=== PATIENT | female | born 1950 ===

== ENCOUNTER 2016-08-17 09:55 | Inpatient (IN) | payer BC, OTHER ==
[2016-08-17] MEDS ORDERED: Morphine 4 MG/ML Syringe IVPUSH ONE (10:04)
[2016-08-17] MEDS: Sodium Chloride 0.9% 10 ML Syringe FLUSH PRN ×3 (10:13→10:16)
[2016-08-17] MEDS: Ondansetron 4 MG/2 ML SDV IVPUSH PRN ×2 (10:14→10:47)
[2016-08-17] MEDS ORDERED: Morphine 4 MG/ML Syringe IM ONE (10:20)
[2016-08-17] MEDS ORDERED: Sodium Chloride 0.9% 1,000 ML IV ONE ×2 (10:21→12:07)
--- NOTE | 2016-08-17 10:35 | EDM.PDOC ---
ED HPI GI/ABDOMINAL - General Chief Complaint: Abdominal Pain Stated Complaint: STOMACH PAIN Time Seen by Provider: 08/17/16 10:05 Source: Reports: Patient, Family History Limitations: Reports: No limitations - History of Present Illness INITIAL COMMENTS - FREE TEXT/NARRATIVE: c/o lower abd pain x 36h pain in suprapubic area without radiation, onset 2 evenings ago after going for a walk, an ache, did not bother too much, ate chicken and brussel sprouts and coucus for supper 2 nights ago after getting back from the walk. Food did not affect the pain, nor does BM or moving. Had pain when she awoke yesterday, took ibuprofen x 2 which helped, ate 3 meals yesterday, appetite okay, no f/c/d, no n /v. Slept through the night. Awoke 9 AM today and still had pain, more severe, no radiation, now with some nausea but no emesis, took water with her AM thyroid med, otherwise has not eaten or drunken. pain severe on arrival here, MS 4 mg IV did not help, given a 2nd dose of 4 mg h/o c/s x 2, no other abd surgery, not previously had abd pain colonoscopy x 2 were neg, last one 1-2y ago here by Dr Hardy, no tics - Related Data Allergies/ADRs: Allergies Allergy/AdvReac Type Severity Reaction Status Date / Time No Known Allergies Allergy Verified 08/17/16 10:19 Home Meds: Home Meds Aspirin 81 mg PO DAILY 04/07/15 [History] Betamethasone/Propylene Glyc [Diprolene 0.05%] 1 dose TOP ASDIRECTED 04/07/15 [ History] Biotin 5 mg PO DAILY 04/07/15 [History] Calcium Carbonate/Vitamin D3 [Calcium 600 + Vit D 400 Softgl] 1 tab PO DAILY 10/15 [History] Cholecalciferol (Vitamin D3) [Vitamin D] 400 units PO DAILY 04/07/15 [History] Docusate Sodium 100 mg PO DAILY 04/07/15 [History] Hydrochlorothiazide 25 mg PO DAILY 04/07/15 [History] Levothyroxine Sodium [Levoxyl] 50 mcg PO DAILY 04/07/15 [History] [place] Carbonate [Eskalith CR] 900 mg PO DAILY 04/07/15 [History] Mirtazapine 15 mg PO BEDTIME 04/07/15 [History] Omeprazole 20 mg PO BIDAC 08/17/16 [History] Past Medical History - Past Health History Medical/Surgical History: Denies Medical/Surgical History Other OB/BYN History: Social & Family History - Tobacco Use Smoking Status *Q: Former Smoker - Alcohol Use Days Per Week of Alcohol Use: 7 Number of Drinks Per Day: 1 Total Drinks Per Week: 7 - Recreational Drug Use Recreational Drug Use: No ED ROS GENERAL - Review of Systems Review Of Systems: See Below Constitutional: Reports: no symptoms HEENT: Reports: No symptoms Respiratory: Reports: No Symptoms Cardiovascular: Reports: No symptoms Endocrine: Reports: no symptoms GI/Abdominal: Reports: Abdominal pain, Distension : Reports: no symptoms Musculoskeletal: Reports: no symptoms Skin: Reports: no symptoms Neurological: Reports: No Symptoms Hematologic/Lymphatic: Reports: no symptoms Immunologic: Reports: no symptoms ED EXAM, GI/ABD - Physical Exam Exam: See Below Exam Limited By: No limitations General Appearance: alert, WD/WN, moderate distress Ears: normal external exam, hearing grossly normal Nose: normal inspection, normal mucosa, no blood Throat/Mouth: Normal inspection, Normal lips, Normal teeth, Normal gums, Normal oropharynx, Normal voice, No airway compromise Head: atraumatic, normocephalic Neck: normal inspection, supple, non-tender, full range of motion Respiratory/Chest: no respiratory distress, lungs clear, normal breath sounds, no accessory muscle use, chest non-tender Cardiovascular: regular rate, rhythm, no edema, no gallop, no rub, other (2/6 BRITTNY at LSB, not tachy) GI/Abdominal: other (mild to moderate distention, guarding, 1+ tender throughout without localizing, BS x 4 and diminished, no rushes, no CVAT) Back Exam: normal inspection, full range of motion, NT Extremities: normal inspection, normal range of motion, non-tender, no pedal edema Neurological: alert, oriented, CN II-XII intact, normal cognition, no motor/ sensory deficits Psychiatric: normal affect, normal mood Skin Exam: Warm, Dry, Intact, Normal color, No rash Lymphatic: no adenopathy Course - Vital Signs Last Recorded V/S: Last Vital Signs Temp 36.9 C 08/17/16 12:32 Pulse 62 08/17/16 12:32 Resp 15 08/17/16 12:32 BP 115/57 L 08/17/16 12:32 Pulse Ox 98 08/17/16 12:32 - Orders/Labs/Meds Orders: Active Orders 24 hr Category Date Time Status Patient Status [ADT] Routine ADT 08/17/16 12:47 Active Oxygen Therapy [RC] PRN Care 08/17/16 12:47 Active VTE/DVT Education [RC] Per Unit Routine Care 08/17/16 12:47 Active Vital Signs [RC] Q4H Care 08/17/16 12:47 Active Nothing per Oral Now Diet [DIET] Diet 08/17/16 Breakfast Ordered LIPASE [REF] Stat Lab 08/17/16 10:30 Received Iopamidol [Isovue-370 (76%)] Med 08/17/16 11:15 Active 100 ml IV . DIRECTED Lactated Ringers [Ringers, Lactated] 1,000 ml Med 08/17/16 13:00 Ordered IV ASDIRECTED Morphine Med 08/17/16 12:47 Ordered 2 mg IVPUSH Q1H PRN Ondansetron [Zofran] Med 08/17/16 12:47 Ordered 4 mg IV Q6H PRN Ondansetron [Zofran] Med 08/17/16 10:04 Active 4 mg IVPUSH Q4H PRN Piperacillin/Tazobactam [Zosyn] 3.375 gm Med 08/17/16 13:00 Ordered Sodium Chloride 0.9% [Normal Saline] 50 ml IV Q6H Sodium Chloride 0.9% [Normal Saline] 1,000 ml Med 08/17/16 12:07 Active IV .BOLUS Sodium Chloride 0.9% [Saline Flush] Med 08/17/16 10:05 Active 10 ml FLUSH ASDIRECTED PRN Saline Lock Insert [OM.PC] Routine Oth 08/17/16 10:05 Ordered Sequential Compression Device [OM.PC] Per Unit Routine Oth 08/17/16 12:48 Ordered Resuscitation Status Routine Resus Stat 08/17/16 12:47 Ordered Medication Orders Sodium Chloride (Normal Saline) 1,000 mls @ 999 mls/hr IV .BOLUS ONE Stop: 08/17/16 13:07 Last Admin: 08/17/16 12:12 Dose: 999 mls/hr Lactated Ringer's (Ringers, Lactated) 1,000 mls @ 250 mls/hr IV ASDIRECTED MIAN Piperacillin Sod/Tazobactam (Sod 3.375 gm/ Sodium Chloride) 50 mls @ 100 mls/ hr IV Q6H MIAN Iopamidol (Isovue-370 (76%)) 100 ml IV . DIRECTED MIAN Last Admin: 08/17/16 11:17 Dose: 100 ml Morphine Sulfate (Morphine) 2 mg IVPUSH Q1H PRN PRN Reason: Pain (severe 7-10) Ondansetron HCl (Zofran) 4 mg IVPUSH Q4H PRN PRN Reason: Nausea/Vomiting Last Admin: 08/17/16 10:47 Dose: 4 mg Admin: 08/17/16 10:14 Dose: 4 mg Ondansetron HCl (Zofran) 4 mg IV Q6H PRN PRN Reason: Nausea/Vomiting Sodium Chloride (Saline Flush) 10 ml FLUSH ASDIRECTED PRN PRN Reason: Keep Vein Open Last Admin: 08/17/16 10:16 Dose: 10 ml Admin: 08/17/16 10:14 Dose: 10 ml Admin: 08/17/16 10:13 Dose: 10 ml Labs: Laboratory Tests 08/17/16 08/17/16 08/17/16 Range/Units 10:30 10:30 10:30 WBC 13.5 H (4.5-12.0) X10-3/uL RBC 4.30 (3.23-5.20) x10(6)uL Hgb 13.3 (11.5-15.5) g/dL Hct 39.7 (30.0-51.3) % MCV 92.5 (80-96) fL MCH 30.9 (27.7-33.6) pg MCHC 33.4 (32.2-35.4) g/dL RDW 11.8 (11.5-15.5) % Plt Count 340 (125-369) X10(3)uL MPV 7.8 (7.4-10.4) fL Neut % (Auto) 81.5 (46-82) % Lymph % (Auto) 11.8 L (13-37) % [place] % (Auto) 3.9 L (4-12) % Eos % (Auto) 2 (1.0-5.0) % Baso % (Auto) 1 (0-2) % Neut # (Auto) 11.1 H (1.6-8.3) # Lymph # (Auto) 1.6 (0.6-5.0) # [place] # (Auto) 0.5 (0.0-1.3) # Eos # (Auto) 0.2 (0.0-0.8) # Baso # (Auto) 0.1 (0.0-0.2) # Sodium 140 (135-145) mmol/L Potassium 4.3 (3.5-5.3) mmol/L Chloride 108 (100-110) mmol/L Carbon Dioxide 22 L (23-29) mmol/L BUN 17 (8-23) mg/dL Creatinine 0.8 (0.6-1.3) mg/dL Est Cr Clr Drug Dosing 66.51 mL/min Estimated GFR (MDRD) > 60 (>60) BUN/Creatinine Ratio 21.3 H (9-20) Glucose 152 H (80-116) mg/dL Lactic Acid (0.5-2.2) mmol/L Calcium 9.6 (8.6-10.2) mg/dL Total Bilirubin 0.7 (0.1-1.3) mg/dL AST 21 D (5-27) IU/L ALT 15 D (14-26) IU/L Alkaline Phosphatase 99 (56-112) IU/L Lactate Dehydrogenase 145 (120-160) IU/L Troponin I < 0.01 L (0.02-0.06) NG/ML C-Reactive Protein 7.6 H* (0.0-1.0) mg/dL Total Protein 7.3 (6.0-8.0) g/dL Albumin 4.1 (3.2-4.6) g/dL Globulin 3.2 g/dL Albumin/Globulin Ratio 1.3 Amylase 53 (28-100) U/L Urine Color (YELLOW) Urine Appearance (CLEAR) Urine pH (5.0-6.5) Ur Specific [place] (1.010-1.025) Urine Protein (NEGATIVE) mg/dL Urine Glucose (UA) (NEGATIVE) mg/dL Urine Ketones (NEGATIVE) mg/dL Urine Occult Blood (NEGATIVE) Urine Nitrite (NEGATIVE) Urine Bilirubin (NEGATIVE) Urine Urobilinogen (NEGATIVE) mg/dL Ur Leukocyte Esterase (NEGATIVE) Urine WBC (0) Ur Squamous Epith Cells (NS,R,O) Urine Bacteria (NS) 08/17/16 08/17/16 Range/Units 10:30 12:07 WBC (4.5-12.0) X10-3/uL RBC (3.23-5.20) x10(6)uL Hgb (11.5-15.5) g/dL Hct (30.0-51.3) % MCV (80-96) fL MCH (27.7-33.6) pg MCHC (32.2-35.4) g/dL RDW (11.5-15.5) % Plt Count (125-369) X10(3)uL MPV (7.4-10.4) fL Neut % (Auto) (46-82) % Lymph % (Auto) (13-37) % [place] % (Auto) (4-12) % Eos % (Auto) (1.0-5.0) % Baso % (Auto) (0-2) % Neut # (Auto) (1.6-8.3) # Lymph # (Auto) (0.6-5.0) # [place] # (Auto) (0.0-1.3) # Eos # (Auto) (0.0-0.8) # Baso # (Auto) (0.0-0.2) # Sodium (135-145) mmol/L Potassium (3.5-5.3) mmol/L Chloride (100-110) mmol/L Carbon Dioxide (23-29) mmol/L BUN (8-23) mg/dL Creatinine (0.6-1.3) mg/dL Est Cr Clr Drug Dosing mL/min Estimated GFR (MDRD) (>60) BUN/Creatinine Ratio (9-20) Glucose (80-116) mg/dL Lactic Acid 1.8 (0.5-2.2) mmol/L Calcium (8.6-10.2) mg/dL Total Bilirubin (0.1-1.3) mg/dL AST (5-27) IU/L ALT (14-26) IU/L Alkaline Phosphatase (56-112) IU/L Lactate Dehydrogenase (120-160) IU/L Troponin I (0.02-0.06) NG/ML C-Reactive Protein (0.0-1.0) mg/dL Total Protein (6.0-8.0) g/dL Albumin (3.2-4.6) g/dL Globulin g/dL Albumin/Globulin Ratio Amylase (28-100) U/L Urine Color Yellow (YELLOW) Urine Appearance Slightly cloudy (CLEAR) Urine pH 6.0 (5.0-6.5) Ur Specific [place] 1.005 L (1.010-1.025) Urine Protein 30 H (NEGATIVE) mg/dL Urine Glucose (UA) Normal (NEGATIVE) mg/dL Urine Ketones Negative (NEGATIVE) mg/dL Urine Occult Blood Negative (NEGATIVE) Urine Nitrite Negative (NEGATIVE) Urine Bilirubin Negative (NEGATIVE) Urine Urobilinogen Normal (NEGATIVE) mg/dL Ur Leukocyte Esterase Negative (NEGATIVE) Urine WBC 0-5 (0) Ur Squamous Epith Cells Few H (NS,R,O) Urine Bacteria Few H (NS) Meds: Medications Generic Name Dose Route Start Last Admin Trade Name Freq PRN Reason Stop Dose Admin Sodium Chloride 1,000 mls @ 999 mls/hr 08/17/16 12:07 08/17/16 12:12 Normal Saline IV 08/17/16 13:07 999 mls/hr .BOLUS ONE Administration Lactated Ringer's 1,000 mls @ 250 mls/hr 08/17/16 13:00 Ringers, Lactated IV ASDIRECTED [facility] Piperacillin Sod/Tazobactam 50 mls @ 100 mls/hr 08/17/16 13:00 Sod 3.375 gm/ Sodium Chloride IV Q6H [facility] Iopamidol 100 ml 08/17/16 11:15 08/17/16 11:17 Isovue-370 (76%) IV 100 ml . DIRECTED MIAN Administration Morphine Sulfate 2 mg 08/17/16 12:47 Morphine IVPUSH Q1H PRN Pain (severe 7-10) Ondansetron HCl 4 mg 08/17/16 10:04 08/17/16 10:47 Zofran IVPUSH 4 mg Q4H PRN Administration Nausea/Vomiting Ondansetron HCl 4 mg 08/17/16 12:47 Zofran IV Q6H PRN Nausea/Vomiting Sodium Chloride 10 ml 08/17/16 10:05 08/17/16 10:16 Saline Flush FLUSH 10 ml ASDIRECTED PRN Administration Keep Vein Open Discontinued Medications Generic Name Dose Route Start Last Admin Trade Name Adrienne PRN Reason Stop Dose Admin Sodium Chloride 1,000 mls @ 999 mls/hr 08/17/16 10:21 08/17/16 10:36 Normal Saline IV 08/17/16 11:21 999 mls/hr .BOLUS ONE Administration Metoclopramide HCl 10 mg 08/17/16 11:16 08/17/16 12:28 Reglan IV 08/17/16 11:17 Not Given ONETIME ONE Morphine Sulfate 4 mg 08/17/16 10:04 08/17/16 10:14 Morphine IVPUSH 08/17/16 10:05 4 mg ONETIME ONE Administration Morphine Sulfate 4 mg 08/17/16 10:20 08/17/16 10:28 Morphine IM 08/17/16 10:21 4 mg ONETIME ONE Administration Morphine Sulfate 1 mg 08/17/16 12:45 Morphine IVPUSH Q2H MIAN Morphine Sulfate 2 mg 08/17/16 12:39 08/17/16 12:47 Morphine IVPUSH 08/17/16 12:40 2 mg ONETIME ONE Administration - Re-Assessments/Exams Free Text/Narrative Re-Assessment/Exam: 08/17/16 12:03 abd/pelvic CT with 18 mm appendix, possible appendolith, no abscess, ascites, peritonitis. inc'd WBC and CRP also c/w appendicitis. d/w pt as well as surgeon Dr Garza who will come from clinic to evaluate here. Dr Orozco did not think appendix had ruptured altho she may have clinically, abd now softer with inc'd tenderness localizing to RLQ (no longer guarding) Free Text/Narrative Re-Assessment/Exam: 08/17/16 13:00 Dr Garza has seen and evaluated pt, plans to take her to OR, pt agrees to proceed. Departure - Departure Time of Disposition: 12:05 Disposition: Admitted As Inpatient 67 Condition: good Clinical Impression: Acute appendicitis with peritonitis Referrals: Kirk Coleman MD [Primary Care Provider] - Forms: ED Department Discharge - My Orders Last 24 Hours: My Active Orders 08/17/16 10:04 Ondansetron [Zofran] 4 mg IVPUSH Q4H PRN 08/17/16 10:05 Sodium Chloride 0.9% [Saline Flush] 10 ml FLUSH ASDIRECTED PRN Saline Lock Insert [OM.PC] Routine 08/17/16 10:30 LIPASE [REF] Stat 08/17/16 11:15 Iopamidol [Isovue-370 (76%)] 100 ml IV . DIRECTED 08/17/16 12:07 Sodium Chloride 0.9% [Normal Saline] 1,000 ml IV .BOLUS - Assessment/Plan Last 24 Hours: My Active Orders 08/17/16 10:04 Ondansetron [Zofran] 4 mg IVPUSH Q4H PRN 08/17/16 10:05 Sodium Chloride 0.9% [Saline Flush] 10 ml FLUSH ASDIRECTED PRN Saline Lock Insert [OM.PC] Routine 08/17/16 10:30 LIPASE [REF] Stat 08/17/16 11:15 Iopamidol [Isovue-370 (76%)] 100 ml IV . DIRECTED 08/17/16 12:07 Sodium Chloride 0.9% [Normal Saline] 1,000 ml IV .BOLUS
[2016-08-17] MEDS ORDERED: Iopamidol 755 Mg/ML 100 ML Bottle IV SCH (11:15)
[2016-08-17] MEDS ORDERED: Metoclopramide 10 MG/2 ML SDV IV ONE ×2 (11:16→14:00)
--- NOTE | 2016-08-17 12:34 | CT ---
INDICATION: Lower abdominal pain for 36 hours, suprapubic, increased. CT ABDOMEN AND PELVIS WITH CONTRAST: Spiral 2.5-mm axial sections were obtained through the abdomen with oral and IV contrast (100 mL Isovue-370 at 1.2 mL per second) with sagittal and coronal reconstructions 08/17/2016. No comparisons were available. Total Exam DLP = 1002.07 mGy-cm. What appears to be a dilated appendix with thickened wall is noted in the right lower quadrant, measuring approximately 18 mm. The possibility this represents distal ileum with a process such as Crohn's disease is felt to be less likely than acute appendicitis with a markedly enlarged appendix. Extensive periappendiceal and pericecal fat stranding is noted, compatible with peritonitis, which extends into the paracolic gutter superiorly, almost to the level of the kidneys, and inferiorly into the pelvis with pelvic ascites. No definite abscess formation was identified, however. Urinary bladder was fairly normal in appearance. Multiple metallic densities are noted scattered about the abdomen within the bowel, compatible with medication, but should be correlated clinically. Contrast was only noted in the stomach. The gastric antral wall is slightly prominent, which could be on the basis of mild degree of peptic ulcer disease, but should be correlated clinically. The gallbladder is distended in appearance, (44 x 95 mm) likely on the basis of NPO status. There is a probable benign cystic structure in the left lobe of the liver, measuring 33 x 48 mm in diameter. Its wall is slightly shaggy, making it difficult to entirely exclude an abscess. Follow-up may be warranted. An additional purely cystic lesion is suggested in the lower portion of the right lobe of the liver, measuring only 14 mm. The liver was otherwise unremarkable. The left kidney showed evidence of cystic changes, one tiny cyst in the upper pole measured 8.2 mm with an adjacent much larger cyst, mostly exophytic, measuring 31 x 40 mm, both appearing to be simple cysts. The right kidney was unremarkable. The adrenal glands were unremarkable also. The pancreas appeared to be minimally fatty replaced with common bile duct normal in caliber at the head of the pancreas. The spleen appeared normal. There is suggestion of a small fixed hiatal hernia. No definite retroperitoneal mass lesion could be identified. There is retroperitoneal lymphadenopathy, which is nonspecific. It is relatively mild. No other organomegaly, mass lesions, or free fluid collections were identified in the abdomen or pelvis. IMPRESSION: 1. Findings are felt to be most compatible with appendicitis with peritonitis and pelvic ascites. The peritonitis appears to extend into the paracolic gutter towards the level of the lower pole of the right kidney and extends also into the pelvis with pelvic ascites and fat stranding. 2. Probable multiple cysts in the liver, although the larger cyst in the left lateral aspect of the left lobe of the liver could conceivably represent an abscess. This is felt to be less likely than a simple cyst. Follow-up may be warranted, however. 3. Distended gallbladder, likely on the basis of NPO status. 4. Cystic changes in the left kidney have a benign appearance. CT PELVIS: Examination of the pelvis was obtained by CT, as noted above, and revealed findings compatible with appendicitis and peritonitis, with peritonitis extending across the midline to the left and also extending superiorly into the lower left abdomen. Report was called to Dr. Boles at 1155 hours, 08/17/2016. Report was given in person to Dr. Onofre Ignacio at 1235 hours, 08/17/2016. [facility] HOSPITALMason
[2016-08-17] MEDS ORDERED: Morphine 2 MG/ML Syringe IVPUSH ONE (12:39)
[2016-08-17] MEDS ORDERED: Morphine 2 MG/ML Syringe IVPUSH SCH (12:45)
[2016-08-17] MEDS ORDERED: Morphine 2 MG/ML Syringe IVPUSH PRN (12:47)
[2016-08-17] MEDS ORDERED: Ondansetron 4 MG/2 ML SDV IV PRN (12:47)
[2016-08-17] MEDS ORDERED: Piperacillin/Tazobactam 3.375 GM in Sodium Chloride 0.9% 50 ML IV SCH (13:00)
[2016-08-17] MEDS ORDERED: Lactated Ringers 1,000 ML IV SCH (13:00)
[2016-08-17] MEDS ORDERED: fentaNYL 100 MCG/2 ML SDV IVPUSH PRN (13:35)
[2016-08-17] MEDS ORDERED: HYDROmorphone 2 MG/ML SDV IVPUSH PRN (13:35)
[2016-08-17] MEDS ORDERED: Ondansetron 4 MG/2 ML SDV IVPUSH PRN ×2 (13:35→16:10)
[2016-08-17] MEDS ORDERED: fentaNYL 100 MCG/2 ML SDV IV ONE (14:00)
[2016-08-17] MEDS ORDERED: Succinylcholine/Normal Saline 200 MG/10 ML Syringe IV ONE (14:00)
[2016-08-17] MEDS ORDERED: ePHEDrine 50 MG/ML SDV IV ONE (14:00)
[2016-08-17] MEDS ORDERED: Lactated Ringers 1,000 ML IV ONE (14:00)
[2016-08-17] MEDS ORDERED: Famotidine/Normal Saline 20 MG/50 ML BAG IV ONE (14:00)
[2016-08-17] MEDS ORDERED: Propofol 200 MG/20 ML SDV IV ONE (14:00)
[2016-08-17] MEDS ORDERED: Midazolam 1 MG/ML 2 ML SDV IV ONE (14:00)
[2016-08-17] MEDS ORDERED: Ondansetron 4 MG/2 ML SDV IVPUSH ONE (14:00)
[2016-08-17] MEDS ORDERED: Citric Acid/Sodium Citrate Solution 30 ML Cup PO ONE (14:00)
[2016-08-17] MEDS ORDERED: Neostigmine Methylsulfate 1 MG/ML 5 ML Syringe IV ONE (14:00)
[2016-08-17] MEDS ORDERED: Rocuronium 50 MG/5 ML Vial IV ONE (14:00)
[2016-08-17] MEDS ORDERED: Dexamethasone 4 MG/ML 5 ML MDV IVPUSH ONE (14:00)
[2016-08-17] MEDS ORDERED: HYDROmorphone 2 MG/ML SDV IV ONE (14:00)
[2016-08-17] MEDS ORDERED: Bupivacaine 0.5%/EPINEPHrine 1:200,000 50 ML MDV INJECT ONE (14:27)
--- NOTE | 2016-08-17 15:34 | HP ---
ADMISSION DATE: 08/17/2016 HISTORY OF PRESENT ILLNESS: This 65-year-old female presented to the emergency room this morning with continued and worsening abdominal pain. She says her pain began in the lower abdomen about 3 days ago. It has continued and was noted to be significantly worse this morning. It has mainly been in the lower abdomen, and more diffuse today than previously. It began in the right lower quadrant. It has been associated with some nausea but no diarrhea. Her last bowel movement which was a normal stool was 2 days ago. The patient has not had pain similar to this before. She does not recall eating any unusual foods. She did eat yesterday, but has not eaten anything today. On evaluation, the patient underwent a CT scan of the abdomen which was interpreted as showing a dilated acutely inflamed appendix with some periappendiceal inflammation as well as intraperitoneal fluid consistent with inflammatory response. No free air is noted. LABORATORY DATA: Laboratory studies show elevated serum white blood cell count of 13,500. Unremarkable liver functions and a normal amylase. PAST MEDICAL HISTORY: Shows only previous surgeries, which was 2 sections. She states she had no anesthetic complications from them. She does have a history of manic depressive condition. The patient has had 2 colonoscopies in the past, the last was 2 years ago and these were normal. CURRENT MEDICATIONS: Include: 1. [place] 900 mg daily. 2. Mirtazapine 15 mg at bedtime. 3. Prilosec b.i.d. 4. She also takes a daily aspirin. 5. Hydrochlorothiazide 25 mg daily. ALLERGIES: She has no known drug allergies, although she does recall a mild reaction to Naprosyn in the past. HABITS: She does not smoke, but does drink alcohol. FAMILY HISTORY: Negative for known anesthetic complications or bleeding disorders. SOCIAL HISTORY: The patient is and lives in [place]. She is not currently working outside the home. REVIEW OF SYSTEMS: She denies any recent cough, cold, or sore throat symptoms. She denies any chest pain or palpitations. There has been no history of shortness of breath or breathing disorders. She has no voiding difficulties and denies any lower extremity joint pain and only has occasional mild ankle swelling. PHYSICAL EXAMINATION: VITAL SIGNS: Temperature 98.5, pulse 62, blood pressure is 115/57. GENERAL: The patient is an adult female. She is in significant abdominal pain. HEENT: Head is normocephalic. There is no scleral icterus. No cervical masses. HEART: Regular without murmur. LUNGS: Clear. Breath sounds are equal. There is no wheezing. She has no CVA tenderness to percussion. ABDOMEN: Shows diffuse tenderness to direct palpation with percussion tenderness noted in the lower abdomen, both left and right lower quadrants. No definite mass is identified. IMPRESSION: Acute appendicitis with peritonitis. PLAN: The patient will be admitted and will be taken to the operating room for diagnostic laparoscopy and probable laparoscopic appendectomy. I have discussed the proposed operative procedure with the patient and reviewed with her indications, options, and risks, such as but not limited to bleeding, infection, and injury to other organs. I have also discussed possible other diagnoses and clearly reviewed with her the possibility of the need to convert to a laparotomy. She appears to understand and agrees to proceed. /[id number] ALETA/ANEESH RUFFIN
--- NOTE | 2016-08-17 16:10 | PCM.OPNOTE ---
- General Post-Op/Procedure Note Date of Surgery/Procedure: 08/17/16 Operative Procedure(s): Laproscopic Appendectomy Findings: Acutely inflamed appendix with perforation near cecum. Diffuse peritonitis and inflammatory fluid in abdomen but no localized abscess. Pre Op Diagnosis: Acute Appendicitis Post-Op Diagnosis: Acute Perforated Appendicitis with Peritonitis Anesthesia Technique: General ET tube Primary Surgeon: Onofre Ignacio Pathology: Appendix and cultures Output, Urine Amount: 0 EBL in mLs: 25 Complications: None Condition: Good Free Text/Narrative:: Intake & Output 08/17/16 08/17/16 08/17/16 06:59 14:59 22:59 Output Total 525 Balance -525
[2016-08-17] MEDS ORDERED: BETAMETHASONE TOP SCH (16:15)
[2016-08-17] MEDS ORDERED: PROPYLENE GLYC TOP SCH (16:15)
[2016-08-17] MEDS: Pantoprazole 40 MG Vial IVPUSH SCH (17:50)
[2016-08-17] MEDS: Lactated Ringers 1,000 ML IV SCH (18:36)
[2016-08-17] MEDS: Piperacillin/Tazobactam 3.375 GM in Sodium Chloride 0.9% 50 ML IV SCH (20:22)
[2016-08-17] MEDS: Morphine 2 MG/ML Syringe IVPUSH PRN (23:12)
--- NOTE | 2016-08-17 23:32 | OR ---
DATE OF OPERATION: 08/17/2016 SURGEON: Onofre Ignacio MD PREOPERATIVE DIAGNOSIS: Acute appendicitis. POSTOPERATIVE DIAGNOSIS: Acute perforated appendicitis with peritonitis. OPERATION PERFORMED: Laparoscopic appendectomy. INDICATIONS FOR SURGERY: This 65-year-old female presented to the emergency room with a 3-day history of abdominal pain which was significantly worsening today. She had marked abdominal tenderness and a CT scan finding consistent with acute appendicitis. FINDINGS: The patient had a severe acute appendicitis with perforation of the appendix near the appendiceal cecal junction. There was stool leaking from this perforation and intense inflammation in the near by bowel wall and tissue. There was a moderate amount of cloudy inflammatory fluid throughout the lower abdomen and exudate on surface of several loops of small bowel. Some of the bowel was adherent to the anterior abdominal wall and to each other, but no intra-loop or intraabdominal abscess was identified. The patient had a findings consistent with a cyst on the left lobe of her liver noted on CT scan, but adhesions in the upper abdomen precluded visualization of this. PROCEDURE IN DETAIL: The patient was taken to the operating room. She was given general endotracheal anesthesia, and the abdomen was sterilely prepped and draped. An infraumbilical stab wound incision was made. Through this a Veress needle was inserted and pneumoperitoneum via this needle to a pressure of 15 mmHg was achieved with carbon dioxide. The Veress needle was then replaced with a 5 mm trocar into which the 5 mm variable angled laparoscopic camera was inserted. Under direct visualization, intraabdominal examination was performed. There were adhesions of the loops of small bowel to the anterior abdominal wall in the lower abdomen which initially precluded placement of the trocars in the midline and right lower quadrant. There was enough open space in the left lower quadrant, a 5 mm trocar could be placed at this level under direct visualization. Using blunt dissection, the small bowel was able to be freed from the anterior abdominal wall exposing the lower part of the abdomen and exposure was achieved, so that a 12 mm trocar to be placed in the suprapubic midline. Careful examination was then carried out and the appendix was identified at the inferior edge of the cecum. Examination of the appendix showed it to be severely acutely inflamed with a perforation near the appendiceal cecal junction, some stool was coming through this perforation, and this was removed and contained as much as possible. Blunt dissection partially mobilized the appendix and careful examination indicated that there would be just enough space on the lower part of the cecum where the appendiceal cecal junction could be stapled across high on the cecum, where there was satisfactory quality of the cecal wall. Careful manipulation was then performed to open a window in the mesentery at the lower edge of the cecum and then across the lower portion of the cecum, an Endo SMOOTH stapler with 2.5 mm sabina was placed in such a manner that the site of perforation was just on the appendiceal side of the staple line. The stapler is fired dividing the appendix from the cecum and careful examination of the cecal staple line and the surrounding cecal wall showed the tissue to be of good quality, the staple line to be secure, and no evidence of weakening of this area was noted. Two additional firings of the Endo SMOOTH were then carried out across the mesoappendix and the appendix was then placed into an Endo retrieval bag and extracted piecemeal through the umbilical trocar site. A 12 mm trocar had to be placed at this level to provide a good angle for the stapler to fire across the lower part of the cecum. Cultures of the appendix were taken. With the appendix removed, copious irrigation with multiple liters of saline was then carried out throughout the abdominal cavity. Irrigation was performed and examination between the loops of the small bowel was carried out to try and be sure that as much as possible any contamination was irrigated and no intra-loop abscess was left. Examination did not show any other abnormalities. There were adhesions of the superior portion of the left lobe to the anterior abdominal wall which precluded visualization of the region of a benign appearing cyst which had been noted on CT scan. Once the abdominal cavity had been copiously irrigated and with no sign of any bleeding or other complication and with inspection showing the cecal staple line to be of good quality, the trocars were removed under direct visualization and the pneumoperitoneum was evacuated. The fascia of the two larger trocar sites were closed with [id number] 0 Vicryl sutures. The wounds were irrigated with Betadine and saline solution. Skin incisions were approximated with interrupted 4-0 Vicryl in a subcuticular stitch, Steri-Strips and Benzoin. Antibiotic ointment and sterile dressings were placed. The patient was then awakened, extubated, and taken from the operating room in satisfactory condition. ESTIMATED BLOOD LOSS: 25 Margaret. COMPLICATIONS: None. PROGNOSIS: Good. /[id number] ALETA/ANEESH RUFFIN
[2016-08-18] MEDS: Morphine 2 MG/ML Syringe IVPUSH PRN ×3 (01:30→05:34)
[2016-08-18] MEDS: Piperacillin/Tazobactam 3.375 GM in Sodium Chloride 0.9% 50 ML IV SCH ×4 (01:35→19:47)
[2016-08-18] MEDS: Lactated Ringers 1,000 ML IV SCH ×3 (03:39→21:55)
[2016-08-18] MEDS ORDERED: Levothyroxine 50 MCG Tab PO SCH (06:00)
--- NOTE | 2016-08-18 07:45 | PCM.SURGPN ---
- General Info Date of Service: 08/18/16 Date of Surgery/Procedure: 08/17/16 POD#: 1 Post-Op Diagnosis: Acute Ruptured Appendicitis Functional Status: Reports: other (pain better then pre op but still pain with movement) - Review of Systems Pulmonary: Reports: cough (Mild with some abdominal muscle spasms). Denies: shortness of breath Gastrointestinal: Denies: Flatus, Nausea, Vomiting Musculoskeletal: Reports: no symptoms - Patient Data Vitals - most recent: Last Vital Signs Temp 97.5 F 08/18/16 07:15 Pulse 107 H 08/18/16 07:15 Resp 18 08/18/16 07:15 BP 114/74 08/18/16 07:15 Pulse Ox 90 L 08/18/16 07:15 Weight - most recent: 190 lb I&O - last 24 hours: Intake & Output 08/17/16 08/18/16 08/18/16 22:59 06:59 14:59 Intake Total 450 1125 Output Total 250 700 Balance 200 425 Lab Results last 24 hrs: Laboratory Results - last 24 hr 08/18/16 08/18/16 Range/Units 06:40 06:40 WBC 15.5 H (4.5-12.0) X10-3/uL RBC 3.99 (3.23-5.20) x10(6)uL Hgb 12.5 (11.5-15.5) g/dL Hct 37.1 (30.0-51.3) % MCV 93.1 (80-96) fL MCH 31.4 (27.7-33.6) pg MCHC 33.7 (32.2-35.4) g/dL RDW 12.1 (11.5-15.5) % Plt Count 286 (125-369) X10(3)uL MPV 8.1 (7.4-10.4) fL Add Manual Diff Yes Neutrophils % (Manual) 59 (46-82) % Band Neutrophils % 20 H* (0-6) % Lymphocytes % (Manual) 11 L (13-37) % Monocytes % (Manual) 9 (4-12) % Metamyelocytes % 1 H (0-0) % Potassium 3.8 (3.5-5.3) mmol/L Med Orders - Current: Current Medications Hydrocodone Bitart/Acetaminophen ([place] 325-5 Mg) 2 tab PO Q4H PRN PRN Reason: Pain (moderate 4-6) Hydrocodone Bitart/Acetaminophen ([place] 325-5 Mg) 1 tab PO Q4H PRN PRN Reason: Pain (mild 1-3) Fentanyl (Sublimaze) 25 mcg IVPUSH Q5M PRN PRN Reason: Pain Hydrochlorothiazide (Hydrochlorothiazide) 25 mg PO DAILY [facility] Hydromorphone HCl (Dilaudid) 0.2 mg IVPUSH Q10M PRN PRN Reason: Pain (severe 7-10) Lactated Ringer's (Ringers, Lactated) 1,000 mls @ 250 mls/hr IV ASDIRECTED [facility] Lactated Ringer's (Ringers, Lactated) 1,000 mls @ 125 mls/hr IV ASDIRECTED [facility] Last Admin: 08/18/16 03:39 Dose: 125 mls/hr Piperacillin Sod/Tazobactam (Sod 3.375 gm/ Sodium Chloride) 50 mls @ 100 mls/ hr IV Q6H [facility] Last Admin: 08/18/16 01:35 Dose: 100 mls/hr Iopamidol (Isovue-370 (76%)) 100 ml IV . DIRECTED [facility] Last Admin: 08/17/16 11:17 Dose: 100 ml Levothyroxine Sodium (Synthroid) 50 mcg PO 0600 [facility] Last Admin: 08/18/16 05:34 Dose: 50 mcg Morphine Sulfate (Morphine) 2 mg IVPUSH Q1H PRN PRN Reason: Pain (severe 7-10) Last Admin: 08/18/16 07:28 Dose: 2 mg Morphine Sulfate (Morphine) 2 mg IVPUSH Q1H PRN PRN Reason: Pain (severe 7-10) Last Admin: 08/18/16 05:34 Dose: 2 mg Non-Formulary Medication (Betamethasone/Propylene Glyc [Diprolene 0.05%]) 1 dose TOP ASDIRECTED [facility] Non-Formulary Medication ([place] Carbonate [Eskalith Cr]) 900 mg PO DAILY [facility] Ondansetron HCl (Zofran) 4 mg IVPUSH Q4H PRN PRN Reason: Nausea/Vomiting Last Admin: 08/17/16 10:47 Dose: 4 mg Ondansetron HCl (Zofran) 4 mg IV Q6H PRN PRN Reason: Nausea/Vomiting Ondansetron HCl (Zofran) 4 mg IVPUSH ONETIME PRN PRN Reason: Nausea/Vomiting Ondansetron HCl (Zofran) 4 mg IVPUSH Q6H PRN PRN Reason: Nausea/Vomiting Pantoprazole Sodium (Protonix Iv) 40 mg IVPUSH 1800 [facility] Last Admin: 08/17/16 17:50 Dose: 40 mg Sodium Chloride (Saline Flush) 10 ml FLUSH ASDIRECTED PRN PRN Reason: Keep Vein Open Last Admin: 08/17/16 10:16 Dose: 10 ml Discontinued Medications Bupivacaine HCl/Epinephrine Bitart (Marcaine 0.5%/Epinephrine 1:200,000) 20 ml INJECT .STK-MED ONE Stop: 08/17/16 14:28 Last Admin: 08/17/16 14:27 Dose: 20 ml Sodium Chloride (Normal Saline) 1,000 mls @ 999 mls/hr IV .BOLUS ONE Stop: 08/17/16 11:21 Last Admin: 08/17/16 10:36 Dose: 999 mls/hr Sodium Chloride (Normal Saline) 1,000 mls @ 999 mls/hr IV .BOLUS ONE Stop: 08/17/16 13:07 Last Admin: 08/17/16 12:12 Dose: 999 mls/hr Piperacillin Sod/Tazobactam (Sod 3.375 gm/ Sodium Chloride) 50 mls @ 100 mls/ hr IV Q6H [facility] Last Admin: 08/17/16 13:55 Dose: 100 mls/hr Metoclopramide HCl (Reglan) 10 mg IV ONETIME ONE Stop: 08/17/16 11:17 Last Admin: 08/17/16 12:28 Dose: Not Given Morphine Sulfate (Morphine) 4 mg IVPUSH ONETIME ONE Stop: 08/17/16 10:05 Last Admin: 08/17/16 10:14 Dose: 4 mg Morphine Sulfate (Morphine) 4 mg IM ONETIME ONE Stop: 08/17/16 10:21 Last Admin: 08/17/16 10:28 Dose: 4 mg Morphine Sulfate (Morphine) 1 mg IVPUSH Q2H [facility] Morphine Sulfate (Morphine) 2 mg IVPUSH ONETIME ONE Stop: 08/17/16 12:40 Last Admin: 08/17/16 12:47 Dose: 2 mg - Exam Wound/Incisions: drainage (mild clear drainage from lower incisions), erythema ( mild at umbilical incision) General: alert, oriented Lungs: Normal respiratory effort Abdomen: distension (mild) Extremities: no edema Psy/Mental Status: alert - Problem List Review Problem List Initiated/Reviewed/Updated: Yes - My Orders Last 24 Hours: Active Orders 24 hr Category Date Time Status Patient Status [ADT] Routine ADT 08/17/16 16:10 Active Ambulate [RC] ASDIRECTED Care 08/17/16 16:10 Active Antiembolic Devices [RC] .Routine Care 08/17/16 16:13 Active Intake and Output [RC] QSHIFT Care 08/17/16 16:11 Active Oxygen Therapy [RC] PRN Care 08/17/16 16:10 Active RT Incentive Spirometry [RC] Q1HWA Care 08/17/16 16:10 Active Nothing Per Oral Diet [DIET] Diet 08/17/16 Dinner Active CULTURE ANAEROBIC [RM] Routine Lab 08/17/16 15:30 Received CULTURE ROUTINE + SMEAR [RM] Routine Lab 08/17/16 15:30 Received Acetaminophen/HYDROcodone [[place] 325-5 MG] Med 08/17/16 16:10 Active 1 tab PO Q4H PRN Acetaminophen/HYDROcodone [[place] 325-5 MG] Med 08/17/16 16:10 Active 2 tab PO Q4H PRN Betamethasone/Propylene Glyc [Diprolene 0.05%] Med 08/17/16 16:15 Pending 1 dose TOP ASDIRECTED HYDROmorphone [Dilaudid] Med 08/17/16 13:35 Active 0.2 mg IVPUSH Q10M PRN Hydrochlorothiazide Med 08/18/16 09:00 Active 25 mg PO DAILY Lactated Ringers [Ringers, Lactated] 1,000 ml Med 08/17/16 16:15 Active IV ASDIRECTED Levothyroxine [Synthroid] Med 08/18/16 06:00 Active 50 mcg PO 0600 [place] Carbonate [Eskalith CR] Med 08/18/16 09:00 Pending 900 mg PO DAILY Morphine Med 08/17/16 16:10 Active 2 mg IVPUSH Q1H PRN Ondansetron [Zofran] Med 08/17/16 13:35 Active 4 mg IVPUSH ONETIME PRN Ondansetron [Zofran] Med 08/17/16 16:10 Active 4 mg IVPUSH Q6H PRN Pantoprazole [ProTONIX IV] Med 08/17/16 18:00 Active 40 mg IVPUSH 1800 Piperacillin/Tazobactam [Zosyn] 3.375 gm Med 08/17/16 20:00 Active Sodium Chloride 0.9% [Normal Saline] 50 ml IV Q6H fentaNYL [Sublimaze] Med 08/17/16 13:35 Active 25 mcg IVPUSH Q5M PRN DVT/VTE Prophylaxis Reflex [OM.PC] Per Unit Routine Oth 08/17/16 16:13 Ordered Medication Orders Hydrocodone Bitart/Acetaminophen ([place] 325-5 Mg) 2 tab PO Q4H PRN PRN Reason: Pain (moderate 4-6) Hydrocodone Bitart/Acetaminophen ([place] 325-5 Mg) 1 tab PO Q4H PRN PRN Reason: Pain (mild 1-3) Fentanyl (Sublimaze) 25 mcg IVPUSH Q5M PRN PRN Reason: Pain Hydrochlorothiazide (Hydrochlorothiazide) 25 mg PO DAILY [facility] Hydromorphone HCl (Dilaudid) 0.2 mg IVPUSH Q10M PRN PRN Reason: Pain (severe 7-10) Lactated Ringer's (Ringers, Lactated) 1,000 mls @ 250 mls/hr IV ASDIRECTED [facility] Lactated Ringer's (Ringers, Lactated) 1,000 mls @ 125 mls/hr IV ASDIRECTED [facility] Last Admin: 08/18/16 03:39 Dose: 125 mls/hr Infusion: 08/18/16 02:36 Dose: 125 mls/hr Admin: 08/17/16 18:36 Dose: 125 mls/hr Piperacillin Sod/Tazobactam (Sod 3.375 gm/ Sodium Chloride) 50 mls @ 100 mls/ hr IV Q6H [facility] Last Admin: 08/18/16 01:35 Dose: 100 mls/hr Admin: 08/17/16 20:22 Dose: 100 mls/hr Iopamidol (Isovue-370 (76%)) 100 ml IV . DIRECTED [facility] Last Admin: 08/17/16 11:17 Dose: 100 ml Levothyroxine Sodium (Synthroid) 50 mcg PO 0600 [facility] Last Admin: 08/18/16 05:34 Dose: 50 mcg Morphine Sulfate (Morphine) 2 mg IVPUSH Q1H PRN PRN Reason: Pain (severe 7-10) Last Admin: 08/18/16 07:28 Dose: 2 mg Morphine Sulfate (Morphine) 2 mg IVPUSH Q1H PRN PRN Reason: Pain (severe 7-10) Last Admin: 08/18/16 05:34 Dose: 2 mg Admin: 08/18/16 03:40 Dose: 2 mg Admin: 08/18/16 01:30 Dose: 2 mg Admin: 08/17/16 23:12 Dose: 2 mg Non-Formulary Medication (Betamethasone/Propylene Glyc [Diprolene 0.05%]) 1 dose TOP ASDIRECTED [facility] Non-Formulary Medication ([place] Carbonate [Eskalith Cr]) 900 mg PO DAILY [facility] Ondansetron HCl (Zofran) 4 mg IVPUSH Q4H PRN PRN Reason: Nausea/Vomiting Last Admin: 08/17/16 10:47 Dose: 4 mg Admin: 08/17/16 10:14 Dose: 4 mg Ondansetron HCl (Zofran) 4 mg IV Q6H PRN PRN Reason: Nausea/Vomiting Ondansetron HCl (Zofran) 4 mg IVPUSH ONETIME PRN PRN Reason: Nausea/Vomiting Ondansetron HCl (Zofran) 4 mg IVPUSH Q6H PRN PRN Reason: Nausea/Vomiting Pantoprazole Sodium (Protonix Iv) 40 mg IVPUSH 1800 [facility] Last Admin: 08/17/16 17:50 Dose: 40 mg Sodium Chloride (Saline Flush) 10 ml FLUSH ASDIRECTED PRN PRN Reason: Keep Vein Open Last Admin: 08/17/16 10:16 Dose: 10 ml Admin: 08/17/16 10:14 Dose: 10 ml Admin: 08/17/16 10:13 Dose: 10 ml - Assessment Assessment (Free Text/Narrative):: POD#1 Appendectomy for ruptured appendix - stable WBC and Bands still up Afebrile - Plan Plan (Free Text/Narrative):: Continue IV antibiotics Try sips of clear liquids strongly encouraged to ambulate and use IS
[2016-08-18] MEDS: Acetaminophen/HYDROcodone 325-5 MG Tab PO PRN ×5 (08:31→22:28)
[2016-08-18] MEDS: Hydrochlorothiazide 25 MG Tab PO SCH ×2 (09:31→09:33)
[2016-08-18] MEDS: LITHIUM CARBONATE 900 MG PO SCH (13:03)
[2016-08-18] MEDS: Pantoprazole 40 MG Vial IVPUSH SCH (17:46)
[2016-08-19] MEDS: Piperacillin/Tazobactam 3.375 GM in Sodium Chloride 0.9% 50 ML IV SCH ×4 (01:48→20:37)
[2016-08-19] MEDS: Sodium Chloride 0.9% 250 ML IV SCH ×3 (01:48→13:55)
[2016-08-19] MEDS: Acetaminophen/HYDROcodone 325-5 MG Tab PO PRN ×4 (02:38→21:18)
[2016-08-19] MEDS: Levothyroxine 100 MCG Tab PO SCH (06:36)
[2016-08-19] MEDS: Lactated Ringers 1,000 ML IV SCH ×2 (06:41→17:52)
--- NOTE | 2016-08-19 07:51 | PCM.SURGPN ---
- General Info Date of Service: 08/19/16 Date of Surgery/Procedure: 08/17/16 POD#: 2 Functional Status: Reports: pain controlled (taking oral agent, still having some muscle spams but improved) - Review of Systems Pulmonary: Reports: no symptoms. Denies: shortness of breath Gastrointestinal: Reports: Nausea (mild), Other (taking small amounts liquids PO ). Denies: Vomiting Genitourinary: Reports: no symptoms Musculoskeletal: Denies: leg pain - Patient Data Vitals - most recent: Last Vital Signs Temp 98.1 F 08/19/16 04:00 Pulse 98 08/19/16 06:56 Resp 18 08/19/16 04:00 BP 106/62 08/19/16 04:00 Pulse Ox 96 08/19/16 04:00 Weight - most recent: 190 lb I&O - last 24 hours: Intake & Output 08/18/16 08/19/16 08/19/16 22:59 06:59 14:59 Intake Total 935 985 Output Total 400 300 Balance 535 685 Lab Results last 24 hrs: Laboratory Results - last 24 hr 08/19/16 08/19/16 Range/Units 06:20 06:20 WBC 18.9 H (4.5-12.0) X10-3/uL RBC 3.55 (3.23-5.20) x10(6)uL Hgb 11.1 L (11.5-15.5) g/dL Hct 33.2 (30.0-51.3) % MCV 93.4 (80-96) fL MCH 31.2 (27.7-33.6) pg MCHC 33.4 (32.2-35.4) g/dL RDW 12.1 (11.5-15.5) % Plt Count 242 (125-369) X10(3)uL MPV 8.1 (7.4-10.4) fL Potassium 3.6 (3.5-5.3) mmol/L Med Orders - Current: Current Medications Hydrocodone Bitart/Acetaminophen ([place] 325-5 Mg) 2 tab PO Q4H PRN PRN Reason: Pain (moderate 4-6) Last Admin: 08/19/16 06:37 Dose: 2 tab Hydrocodone Bitart/Acetaminophen ([place] 325-5 Mg) 1 tab PO Q4H PRN PRN Reason: Pain (mild 1-3) Last Admin: 08/18/16 10:42 Dose: 1 tab Hydrochlorothiazide (Hydrochlorothiazide) 25 mg PO DAILY [facility] Last Admin: 08/18/16 09:33 Dose: Not Given Lactated Ringer's (Ringers, Lactated) 1,000 mls @ 250 mls/hr IV ASDIRECTED [facility] Lactated Ringer's (Ringers, Lactated) 1,000 mls @ 125 mls/hr IV ASDIRECTED [facility] Last Admin: 08/19/16 06:41 Dose: 125 mls/hr Piperacillin Sod/Tazobactam (Sod 3.375 gm/ Sodium Chloride) 50 mls @ 100 mls/ hr IV Q6H [facility] Last Admin: 08/19/16 01:48 Dose: 100 mls/hr Sodium Chloride (Normal Saline) 250 mls @ 100 mls/hr IV ASDIRECTED [facility] Last Admin: 08/19/16 01:48 Dose: 100 mls/hr Iopamidol (Isovue-370 (76%)) 100 ml IV . DIRECTED [facility] Last Admin: 08/17/16 11:17 Dose: 100 ml Levothyroxine Sodium (Synthroid) 50 mcg PO MoTuThFrSa@0600 [facility] Levothyroxine Sodium (Synthroid) 100 mcg PO SuWe@0600 [facility] Last Admin: 08/19/16 06:36 Dose: 100 mcg Morphine Sulfate (Morphine) 2 mg IVPUSH Q1H PRN PRN Reason: Pain (severe 7-10) Last Admin: 08/18/16 05:34 Dose: 2 mg Non-Formulary Medication (Betamethasone/Propylene Glyc [Diprolene 0.05%]) 1 dose TOP ASDIRECTED [facility] Non-Formulary Medication ([place] Carbonate [Eskalith Cr]) 900 mg PO DAILY [facility] Last Admin: 08/18/16 13:03 Dose: 900 mg Ondansetron HCl (Zofran) 4 mg IVPUSH Q6H PRN PRN Reason: Nausea/Vomiting Pantoprazole Sodium (Protonix Iv) 40 mg IVPUSH 1800 [facility] Last Admin: 08/18/16 17:46 Dose: 40 mg Sodium Chloride (Saline Flush) 10 ml FLUSH ASDIRECTED PRN PRN Reason: Keep Vein Open Last Admin: 08/17/16 10:16 Dose: 10 ml Discontinued Medications Bupivacaine HCl/Epinephrine Bitart (Marcaine 0.5%/Epinephrine 1:200,000) 20 ml INJECT .STK-MED ONE Stop: 08/17/16 14:28 Last Admin: 08/17/16 14:27 Dose: 20 ml Fentanyl (Sublimaze) 25 mcg IVPUSH Q5M PRN PRN Reason: Pain Hydromorphone HCl (Dilaudid) 0.2 mg IVPUSH Q10M PRN PRN Reason: Pain (severe 7-10) Sodium Chloride (Normal Saline) 1,000 mls @ 999 mls/hr IV .BOLUS ONE Stop: 08/17/16 11:21 Last Admin: 08/17/16 10:36 Dose: 999 mls/hr Sodium Chloride (Normal Saline) 1,000 mls @ 999 mls/hr IV .BOLUS ONE Stop: 08/17/16 13:07 Last Admin: 08/17/16 12:12 Dose: 999 mls/hr Piperacillin Sod/Tazobactam (Sod 3.375 gm/ Sodium Chloride) 50 mls @ 100 mls/ hr IV Q6H [facility] Last Admin: 08/17/16 13:55 Dose: 100 mls/hr Levothyroxine Sodium (Synthroid) 50 mcg PO 0600 [facility] Last Admin: 08/18/16 05:34 Dose: 50 mcg Metoclopramide HCl (Reglan) 10 mg IV ONETIME ONE Stop: 08/17/16 11:17 Last Admin: 08/17/16 12:28 Dose: Not Given Morphine Sulfate (Morphine) 4 mg IVPUSH ONETIME ONE Stop: 08/17/16 10:05 Last Admin: 08/17/16 10:14 Dose: 4 mg Morphine Sulfate (Morphine) 4 mg IM ONETIME ONE Stop: 08/17/16 10:21 Last Admin: 08/17/16 10:28 Dose: 4 mg Morphine Sulfate (Morphine) 1 mg IVPUSH Q2H [facility] Morphine Sulfate (Morphine) 2 mg IVPUSH ONETIME ONE Stop: 08/17/16 12:40 Last Admin: 08/17/16 12:47 Dose: 2 mg Morphine Sulfate (Morphine) 2 mg IVPUSH Q1H PRN PRN Reason: Pain (severe 7-10) Last Admin: 08/18/16 07:28 Dose: 2 mg Ondansetron HCl (Zofran) 4 mg IVPUSH Q4H PRN PRN Reason: Nausea/Vomiting Last Admin: 08/17/16 10:47 Dose: 4 mg Ondansetron HCl (Zofran) 4 mg IV Q6H PRN PRN Reason: Nausea/Vomiting Ondansetron HCl (Zofran) 4 mg IVPUSH ONETIME PRN PRN Reason: Nausea/Vomiting - Exam General: alert, oriented Lungs: Rales Extremities: no calf tenderness - Problem List Review Problem List Initiated/Reviewed/Updated: Yes - My Orders Last 24 Hours: Active Orders 24 hr Category Date Time Status CBC WITH MANUAL DIFF [HEME] AM Lab 08/19/16 06:20 Results CBC WITH MANUAL DIFF [HEME] AM Lab 08/20/16 05:11 Ordered Hydrochlorothiazide Med 08/18/16 09:00 Hold 25 mg PO DAILY Levothyroxine [Synthroid] Med 08/19/16 06:00 Active 100 mcg PO SuWe@0600 Levothyroxine [Synthroid] Med 08/20/16 06:00 Active 50 mcg PO MoTuThFrSa@0600 [place] Carbonate [Eskalith CR] Med 08/18/16 09:00 Active 900 mg PO DAILY Sodium Chloride 0.9% [Normal Saline] 250 ml Med 08/19/16 02:00 Active IV ASDIRECTED Medication Orders Hydrocodone Bitart/Acetaminophen ([place] 325-5 Mg) 2 tab PO Q4H PRN PRN Reason: Pain (moderate 4-6) Last Admin: 08/19/16 06:37 Dose: 2 tab Admin: 08/19/16 02:38 Dose: 2 tab Admin: 08/18/16 22:28 Dose: 2 tab Admin: 08/18/16 18:39 Dose: 2 tab Admin: 08/18/16 14:30 Dose: 2 tab Hydrocodone Bitart/Acetaminophen ([place] 325-5 Mg) 1 tab PO Q4H PRN PRN Reason: Pain (mild 1-3) Last Admin: 08/18/16 10:42 Dose: 1 tab Admin: 08/18/16 08:31 Dose: 1 tab Hydrochlorothiazide (Hydrochlorothiazide) 25 mg PO DAILY [facility] Last Admin: 08/18/16 09:33 Dose: Not Given Lactated Ringer's (Ringers, Lactated) 1,000 mls @ 250 mls/hr IV ASDIRECTED [facility] Lactated Ringer's (Ringers, Lactated) 1,000 mls @ 125 mls/hr IV ASDIRECTED [facility] Last Admin: 08/19/16 06:41 Dose: 125 mls/hr Infusion: 08/19/16 05:55 Dose: 125 mls/hr Admin: 08/18/16 21:55 Dose: 125 mls/hr Infusion: 08/18/16 20:15 Dose: 125 mls/hr Admin: 08/18/16 12:15 Dose: 125 mls/hr Infusion: 08/18/16 11:39 Dose: 125 mls/hr Admin: 08/18/16 03:39 Dose: 125 mls/hr Infusion: 08/18/16 02:36 Dose: 125 mls/hr Admin: 08/17/16 18:36 Dose: 125 mls/hr Piperacillin Sod/Tazobactam (Sod 3.375 gm/ Sodium Chloride) 50 mls @ 100 mls/ hr IV Q6H [facility] Last Admin: 08/19/16 01:48 Dose: 100 mls/hr Admin: 08/18/16 19:47 Dose: 100 mls/hr Admin: 08/18/16 14:32 Dose: 100 mls/hr Admin: 08/18/16 08:40 Dose: 100 mls/hr Admin: 08/18/16 01:35 Dose: 100 mls/hr Admin: 08/17/16 20:22 Dose: 100 mls/hr Sodium Chloride (Normal Saline) 250 mls @ 100 mls/hr IV ASDIRECTED [facility] Last Admin: 08/19/16 01:48 Dose: 100 mls/hr Iopamidol (Isovue-370 (76%)) 100 ml IV . DIRECTED [facility] Last Admin: 08/17/16 11:17 Dose: 100 ml Levothyroxine Sodium (Synthroid) 50 mcg PO MoTuThFrSa@0600 [facility] Levothyroxine Sodium (Synthroid) 100 mcg PO SuWe@0600 [facility] Last Admin: 08/19/16 06:36 Dose: 100 mcg Morphine Sulfate (Morphine) 2 mg IVPUSH Q1H PRN PRN Reason: Pain (severe 7-10) Last Admin: 08/18/16 05:34 Dose: 2 mg Admin: 08/18/16 03:40 Dose: 2 mg Admin: 08/18/16 01:30 Dose: 2 mg Admin: 08/17/16 23:12 Dose: 2 mg Non-Formulary Medication (Betamethasone/Propylene Glyc [Diprolene 0.05%]) 1 dose TOP ASDIRECTED [facility] Non-Formulary Medication ([place] Carbonate [Eskalith Cr]) 900 mg PO DAILY [facility] Last Admin: 08/18/16 13:03 Dose: 900 mg Ondansetron HCl (Zofran) 4 mg IVPUSH Q6H PRN PRN Reason: Nausea/Vomiting Pantoprazole Sodium (Protonix Iv) 40 mg IVPUSH 1800 [facility] Last Admin: 08/18/16 17:46 Dose: 40 mg Admin: 08/17/16 17:50 Dose: 40 mg Sodium Chloride (Saline Flush) 10 ml FLUSH ASDIRECTED PRN PRN Reason: Keep Vein Open Last Admin: 08/17/16 10:16 Dose: 10 ml Admin: 08/17/16 10:14 Dose: 10 ml Admin: 08/17/16 10:13 Dose: 10 ml - Assessment Assessment (Free Text/Narrative):: POD#2 Appendectomy for ruptured appendix some respiratory congestion and not doing IS well yet WBC's up but afebrile and clinically improving - Plan Plan (Free Text/Narrative):: Clear liquid diet continue IV antibiotics begin SVN's
[2016-08-19] MEDS: LITHIUM CARBONATE 900 MG PO SCH (09:01)
[2016-08-19] MEDS: Albuterol 0.083% 2.5 MG/3 ML Neb Soln NEB SCH ×3 (10:51→20:39)
[2016-08-19] MEDS: Pantoprazole 40 MG Vial IVPUSH SCH (17:36)
[2016-08-19] MEDS: NS + KCl 20mEq/L 1,000 ML IV SCH (18:54)
[2016-08-20] MEDS: Piperacillin/Tazobactam 3.375 GM in Sodium Chloride 0.9% 50 ML IV SCH ×4 (02:08→20:11)
[2016-08-20] MEDS: Acetaminophen/HYDROcodone 325-5 MG Tab PO PRN ×3 (02:21→22:38)
[2016-08-20] MEDS: NS + KCl 20mEq/L 1,000 ML IV SCH ×2 (04:14→16:03)
[2016-08-20] MEDS: Levothyroxine 50 MCG Tab PO SCH (06:28)
--- NOTE | 2016-08-20 06:38 | PCM.SURGPN ---
- General Info Date of Service: 08/20/16 Date of Surgery/Procedure: 08/17/16 POD#: 3 Post-Op Diagnosis: Acute Perforated Appendicitis Functional Status: Reports: other (pain not much improved today) - Review of Systems Pulmonary: Reports: no symptoms Gastrointestinal: Reports: Decreased appetite (still just taking small amounts of liquids). Denies: Nausea, Vomiting Genitourinary: Denies: dysuria Musculoskeletal: Reports: back pain (from laying in bed). Denies: leg pain - Patient Data Vitals - most recent: Last Vital Signs Temp 99.3 F 08/20/16 02:30 Pulse 102 H 08/20/16 02:30 Resp 20 08/20/16 02:30 BP 139/75 08/20/16 02:30 Pulse Ox 93 L 08/20/16 02:30 Weight - most recent: 190 lb I&O - last 24 hours: Intake & Output 08/19/16 08/19/16 08/20/16 14:59 22:59 06:59 Intake Total 1112 913 Output Total 630 353 1444 Balance 562 213 -1050 Lab Results last 24 hrs: Laboratory Results - last 24 hr 08/19/16 08/19/16 Range/Units 06:20 06:20 WBC 18.9 H (4.5-12.0) X10-3/uL RBC 3.55 (3.23-5.20) x10(6)uL Hgb 11.1 L (11.5-15.5) g/dL Hct 33.2 (30.0-51.3) % MCV 93.4 (80-96) fL MCH 31.2 (27.7-33.6) pg MCHC 33.4 (32.2-35.4) g/dL RDW 12.1 (11.5-15.5) % Plt Count 242 (125-369) X10(3)uL MPV 8.1 (7.4-10.4) fL Neutrophils % (Manual) 72 (46-82) % Band Neutrophils % 20 H* (0-6) % Lymphocytes % (Manual) 5 L (13-37) % Monocytes % (Manual) 2 L (4-12) % Metamyelocytes % 1 H (0-0) % Toxic Granulation Few H (NOT SEEN) Potassium 3.6 (3.5-5.3) mmol/L Med Orders - Current: Current Medications Hydrocodone Bitart/Acetaminophen ([place] 325-5 Mg) 2 tab PO Q4H PRN PRN Reason: Pain (moderate 4-6) Last Admin: 08/20/16 06:30 Dose: 2 tab Hydrocodone Bitart/Acetaminophen ([place] 325-5 Mg) 1 tab PO Q4H PRN PRN Reason: Pain (mild 1-3) Last Admin: 08/18/16 10:42 Dose: 1 tab Albuterol (Proventil Neb Soln) 2.5 mg NEB QIDRT [facility] Last Admin: 08/19/16 20:39 Dose: 2.5 mg Hydrochlorothiazide (Hydrochlorothiazide) 25 mg PO DAILY [facility] Last Admin: 08/18/16 09:33 Dose: Not Given Lactated Ringer's (Ringers, Lactated) 1,000 mls @ 250 mls/hr IV ASDIRECTED [facility] Piperacillin Sod/Tazobactam (Sod 3.375 gm/ Sodium Chloride) 50 mls @ 100 mls/ hr IV Q6H [facility] Last Admin: 08/20/16 02:08 Dose: 100 mls/hr Sodium Chloride (Normal Saline) 250 mls @ 100 mls/hr IV ASDIRECTED [facility] Last Admin: 08/19/16 13:55 Dose: 100 mls/hr Potassium Chloride/Sodium Chloride (Normal Saline With 20 Meq Kcl) 1,000 mls @ 100 mls/hr IV ASDIRECTED [facility] Last Admin: 08/20/16 04:14 Dose: 125 mls/hr Iopamidol (Isovue-370 (76%)) 100 ml IV . DIRECTED [facility] Last Admin: 08/17/16 11:17 Dose: 100 ml Ketorolac Tromethamine (Toradol) 15 mg IVPUSH Q6H [facility] Levothyroxine Sodium (Synthroid) 50 mcg PO MoTuThFrSa@0600 [facility] Last Admin: 08/20/16 06:28 Dose: 50 mcg Levothyroxine Sodium (Synthroid) 100 mcg PO SuWe@0600 [facility] Last Admin: 08/19/16 06:36 Dose: 100 mcg Morphine Sulfate (Morphine) 2 mg IVPUSH Q1H PRN PRN Reason: Pain (severe 7-10) Last Admin: 08/18/16 05:34 Dose: 2 mg Non-Formulary Medication (Betamethasone/Propylene Glyc [Diprolene 0.05%]) 1 dose TOP ASDIRECTED [facility] Non-Formulary Medication ([place] Carbonate [Eskalith Cr]) 900 mg PO DAILY [facility] Last Admin: 08/19/16 09:01 Dose: 900 mg Ondansetron HCl (Zofran) 4 mg IVPUSH Q6H PRN PRN Reason: Nausea/Vomiting Pantoprazole Sodium (Protonix Iv) 40 mg IVPUSH 1800 [facility] Last Admin: 08/19/16 17:36 Dose: 40 mg Sodium Chloride (Saline Flush) 10 ml FLUSH ASDIRECTED PRN PRN Reason: Keep Vein Open Last Admin: 08/17/16 10:16 Dose: 10 ml Discontinued Medications Bupivacaine HCl/Epinephrine Bitart ([place] 0.5%/Epinephrine 1:200,000) 20 ml INJECT .STK-MED ONE Stop: 08/17/16 14:28 Last Admin: 08/17/16 14:27 Dose: 20 ml Fentanyl (Sublimaze) 25 mcg IVPUSH Q5M PRN PRN Reason: Pain Hydromorphone HCl (Dilaudid) 0.2 mg IVPUSH Q10M PRN PRN Reason: Pain (severe 7-10) Sodium Chloride (Normal Saline) 1,000 mls @ 999 mls/hr IV .BOLUS ONE Stop: 08/17/16 11:21 Last Admin: 08/17/16 10:36 Dose: 999 mls/hr Sodium Chloride (Normal Saline) 1,000 mls @ 999 mls/hr IV .BOLUS ONE Stop: 08/17/16 13:07 Last Admin: 08/17/16 12:12 Dose: 999 mls/hr Piperacillin Sod/Tazobactam (Sod 3.375 gm/ Sodium Chloride) 50 mls @ 100 mls/ hr IV Q6H [facility] Last Admin: 08/17/16 13:55 Dose: 100 mls/hr Lactated Ringer's (Ringers, Lactated) 1,000 mls @ 125 mls/hr IV ASDIRECTED [facility] Last Admin: 08/19/16 17:52 Dose: 125 mls/hr Levothyroxine Sodium (Synthroid) 50 mcg PO 0600 [facility] Last Admin: 08/18/16 05:34 Dose: 50 mcg Metoclopramide HCl (Reglan) 10 mg IV ONETIME ONE Stop: 08/17/16 11:17 Last Admin: 08/17/16 12:28 Dose: Not Given Morphine Sulfate (Morphine) 4 mg IVPUSH ONETIME ONE Stop: 08/17/16 10:05 Last Admin: 08/17/16 10:14 Dose: 4 mg Morphine Sulfate (Morphine) 4 mg IM ONETIME ONE Stop: 08/17/16 10:21 Last Admin: 08/17/16 10:28 Dose: 4 mg Morphine Sulfate (Morphine) 1 mg IVPUSH Q2H [facility] Morphine Sulfate (Morphine) 2 mg IVPUSH ONETIME ONE Stop: 08/17/16 12:40 Last Admin: 08/17/16 12:47 Dose: 2 mg Morphine Sulfate (Morphine) 2 mg IVPUSH Q1H PRN PRN Reason: Pain (severe 7-10) Last Admin: 08/18/16 07:28 Dose: 2 mg Ondansetron HCl (Zofran) 4 mg IVPUSH Q4H PRN PRN Reason: Nausea/Vomiting Last Admin: 08/17/16 10:47 Dose: 4 mg Ondansetron HCl (Zofran) 4 mg IV Q6H PRN PRN Reason: Nausea/Vomiting Ondansetron HCl (Zofran) 4 mg IVPUSH ONETIME PRN PRN Reason: Nausea/Vomiting - Exam Wound/Incisions: healing well. No: erythema General: alert, oriented Abdomen: soft, other (less tenderness) Extremities: no edema, no tenderness/swelling - Problem List Review Problem List Initiated/Reviewed/Updated: Yes - My Orders Last 24 Hours: Active Orders 24 hr Category Date Time Status RT Aerosol Therapy [RC] ASDIRECTED Care 08/19/16 08:02 Active CBC WITH MANUAL DIFF [HEME] AM Lab 08/20/16 05:11 Ordered CBC WITH MANUAL DIFF [HEME] AM Lab 08/21/16 05:11 Ordered COMPREHENSIVE METABOLIC PN,CMP [CHEM] Routine Lab 08/20/16 05:10 Ordered POTASSIUM,K [CHEM] AM Lab 08/21/16 05:11 Ordered Albuterol [Proventil Neb Soln] Med 08/19/16 11:00 Active 2.5 mg NEB QIDRT Ketorolac [Toradol] Med 08/20/16 06:45 Ordered 15 mg IVPUSH Q6H Levothyroxine [Synthroid] Med 08/19/16 06:00 Active 100 mcg PO SuWe@0600 Levothyroxine [Synthroid] Med 08/20/16 06:00 Active 50 mcg PO MoTuThFrSa@0600 NS + KCl 20mEq/L [Normal Saline with 20 mEq KCl] 1,000 Med 08/19/16 18:30 Active ml IV ASDIRECTED Medication Orders Hydrocodone Bitart/Acetaminophen ([place] 325-5 Mg) 2 tab PO Q4H PRN PRN Reason: Pain (moderate 4-6) Last Admin: 08/20/16 06:30 Dose: 2 tab Admin: 08/20/16 02:21 Dose: 2 tab Admin: 08/19/16 21:18 Dose: 2 tab Admin: 08/19/16 16:37 Dose: 2 tab Admin: 08/19/16 06:37 Dose: 2 tab Admin: 08/19/16 02:38 Dose: 2 tab Admin: 08/18/16 22:28 Dose: 2 tab Admin: 08/18/16 18:39 Dose: 2 tab Admin: 08/18/16 14:30 Dose: 2 tab Hydrocodone Bitart/Acetaminophen ([place] 325-5 Mg) 1 tab PO Q4H PRN PRN Reason: Pain (mild 1-3) Last Admin: 08/18/16 10:42 Dose: 1 tab Admin: 08/18/16 08:31 Dose: 1 tab Albuterol (Proventil Neb Soln) 2.5 mg NEB QIDRT [facility] Last Admin: 08/19/16 20:39 Dose: 2.5 mg Admin: 08/19/16 15:08 Dose: 2.5 mg Admin: 08/19/16 10:51 Dose: 2.5 mg Hydrochlorothiazide (Hydrochlorothiazide) 25 mg PO DAILY [facility] Last Admin: 08/18/16 09:33 Dose: Not Given Lactated Ringer's (Ringers, Lactated) 1,000 mls @ 250 mls/hr IV ASDIRECTED [facility] Piperacillin Sod/Tazobactam (Sod 3.375 gm/ Sodium Chloride) 50 mls @ 100 mls/ hr IV Q6H [facility] Last Admin: 08/20/16 02:08 Dose: 100 mls/hr Admin: 08/19/16 20:37 Dose: 100 mls/hr Admin: 08/19/16 13:55 Dose: 100 mls/hr Admin: 08/19/16 08:57 Dose: 100 mls/hr Admin: 08/19/16 01:48 Dose: 100 mls/hr Admin: 08/18/16 19:47 Dose: 100 mls/hr Admin: 08/18/16 14:32 Dose: 100 mls/hr Admin: 08/18/16 08:40 Dose: 100 mls/hr Admin: 08/18/16 01:35 Dose: 100 mls/hr Admin: 08/17/16 20:22 Dose: 100 mls/hr Sodium Chloride (Normal Saline) 250 mls @ 100 mls/hr IV ASDIRECTED [facility] Last Admin: 08/19/16 13:55 Dose: 100 mls/hr Admin: 08/19/16 08:57 Dose: 100 mls/hr Admin: 08/19/16 01:48 Dose: 100 mls/hr Potassium Chloride/Sodium Chloride (Normal Saline With 20 Meq Kcl) 1,000 mls @ 100 mls/hr IV ASDIRECTED [facility] Last Admin: 08/20/16 04:14 Dose: 125 mls/hr Infusion: 08/20/16 02:54 Dose: 125 mls/hr Admin: 08/19/16 18:54 Dose: 125 mls/hr Iopamidol (Isovue-370 (76%)) 100 ml IV . DIRECTED [facility] Last Admin: 08/17/16 11:17 Dose: 100 ml Ketorolac Tromethamine (Toradol) 15 mg IVPUSH Q6H [facility] Levothyroxine Sodium (Synthroid) 50 mcg PO MoTuThFrSa@0600 [facility] Last Admin: 08/20/16 06:28 Dose: 50 mcg Levothyroxine Sodium (Synthroid) 100 mcg PO SuWe@0600 [facility] Last Admin: 08/19/16 06:36 Dose: 100 mcg Morphine Sulfate (Morphine) 2 mg IVPUSH Q1H PRN PRN Reason: Pain (severe 7-10) Last Admin: 08/18/16 05:34 Dose: 2 mg Admin: 08/18/16 03:40 Dose: 2 mg Admin: 08/18/16 01:30 Dose: 2 mg Admin: 08/17/16 23:12 Dose: 2 mg Non-Formulary Medication (Betamethasone/Propylene Glyc [Diprolene 0.05%]) 1 dose TOP ASDIRECTED [facility] Non-Formulary Medication ([place] Carbonate [Eskalith Cr]) 900 mg PO DAILY [facility] Last Admin: 08/19/16 09:01 Dose: 900 mg Admin: 08/18/16 13:03 Dose: 900 mg Ondansetron HCl (Zofran) 4 mg IVPUSH Q6H PRN PRN Reason: Nausea/Vomiting Pantoprazole Sodium (Protonix Iv) 40 mg IVPUSH 1800 [facility] Last Admin: 08/19/16 17:36 Dose: 40 mg Admin: 08/18/16 17:46 Dose: 40 mg Admin: 08/17/16 17:50 Dose: 40 mg Sodium Chloride (Saline Flush) 10 ml FLUSH ASDIRECTED PRN PRN Reason: Keep Vein Open Last Admin: 08/17/16 10:16 Dose: 10 ml Admin: 08/17/16 10:14 Dose: 10 ml Admin: 08/17/16 10:13 Dose: 10 ml - Assessment Assessment (Free Text/Narrative):: POD#3 Appendectomy for perforated appendicitis stable but not much clinical improvement this am - afebrile - WBC has been elevated and pending this am appetite still poor and no stool yet - Plan Plan (Free Text/Narrative):: Continue IV Zosyn add scheduled toradol for pain continue SVN's and encouraged patient to ambulate continue with liquids only PO as patient taking poorly so far
[2016-08-20] MEDS ORDERED: Ketorolac 15 MG/ML SDV IVPUSH SCH (07:00)
[2016-08-20] MEDS: Ketorolac 15 MG/ML SDV IVPUSH SCH ×3 (07:01→18:40)
[2016-08-20] MEDS: Albuterol 0.083% 2.5 MG/3 ML Neb Soln NEB SCH ×4 (07:05→20:14)
[2016-08-20] MEDS: LITHIUM CARBONATE 900 MG PO SCH (09:40)
[2016-08-20] MEDS: Pantoprazole 40 MG Vial IVPUSH SCH (18:41)
[2016-08-20] MEDS: Sodium Chloride 0.9% 10 ML Syringe FLUSH PRN (18:54)
[2016-08-21] MEDS: Ketorolac 15 MG/ML SDV IVPUSH SCH ×4 (00:22→17:48)
[2016-08-21] MEDS: Piperacillin/Tazobactam 3.375 GM in Sodium Chloride 0.9% 50 ML IV SCH ×4 (02:07→20:30)
[2016-08-21] MEDS: NS + KCl 20mEq/L 1,000 ML IV SCH ×3 (02:44→15:15)
[2016-08-21] MEDS: Acetaminophen/HYDROcodone 325-5 MG Tab PO PRN ×3 (04:22→20:33)
[2016-08-21] MEDS: Levothyroxine 50 MCG Tab PO SCH (06:02)
[2016-08-21] MEDS: Albuterol 0.083% 2.5 MG/3 ML Neb Soln NEB SCH ×4 (07:21→20:35)
--- NOTE | 2016-08-21 09:12 | PCM.SURGPN ---
- General Info Date of Service: 08/21/16 Date of Surgery/Procedure: 08/17/16 POD#: 4 Functional Status: Reports: pain controlled (pain better controlled with Torodal ) - Review of Systems Pulmonary: Denies: shortness of breath Gastrointestinal: Reports: Abdominal pain (generally improved but some gas pain) , Flatus (passig more flatus now) Musculoskeletal: Denies: leg pain - Patient Data Vitals - most recent: Last Vital Signs Temp 97.7 F 08/21/16 08:47 Pulse 96 08/21/16 07:21 Resp 18 08/21/16 08:47 BP 135/78 08/21/16 08:47 Pulse Ox 97 08/21/16 08:47 Weight - most recent: 190 lb I&O - last 24 hours: Intake & Output 08/20/16 08/21/16 08/21/16 22:59 06:59 14:59 Intake Total 1189 1012 Output Total 925 1250 Balance 264 -238 Lab Results last 24 hrs: Laboratory Results - last 24 hr 08/21/16 08/21/16 Range/Units 06:30 06:30 WBC 16.3 H (4.5-12.0) X10-3/uL RBC 3.20 L (3.23-5.20) x10(6)uL Hgb 10.0 L (11.5-15.5) g/dL Hct 30.0 (30.0-51.3) % MCV 93.6 (80-96) fL MCH 31.1 (27.7-33.6) pg MCHC 33.2 (32.2-35.4) g/dL RDW 12.5 (11.5-15.5) % Plt Count 269 (125-369) X10(3)uL MPV 7.8 (7.4-10.4) fL Add Manual Diff Yes Neutrophils % (Manual) 79 (46-82) % Band Neutrophils % 4 (0-6) % Lymphocytes % (Manual) 9 L (13-37) % Monocytes % (Manual) 5 (4-12) % Eosinophils % (Manual) 2 (0-5) % Basophils % (Manual) 1 (0-2) % Toxic Granulation Moderate H (NOT SEEN) Potassium 3.5 (3.5-5.3) mmol/L Med Orders - Current: Current Medications Hydrocodone Bitart/Acetaminophen ([place] 325-5 Mg) 2 tab PO Q4H PRN PRN Reason: Pain (moderate 4-6) Last Admin: 08/20/16 06:30 Dose: 2 tab Hydrocodone Bitart/Acetaminophen ([place] 325-5 Mg) 1 tab PO Q4H PRN PRN Reason: Pain (mild 1-3) Last Admin: 08/21/16 04:22 Dose: 1 tab Albuterol (Proventil Neb Soln) 2.5 mg NEB QIDRT [facility] Last Admin: 08/21/16 07:21 Dose: 2.5 mg Hydrochlorothiazide (Hydrochlorothiazide) 25 mg PO DAILY [facility] Last Admin: 08/18/16 09:33 Dose: Not Given Lactated Ringer's (Ringers, Lactated) 1,000 mls @ 250 mls/hr IV ASDIRECTED [facility] Piperacillin Sod/Tazobactam (Sod 3.375 gm/ Sodium Chloride) 50 mls @ 100 mls/ hr IV Q6H [facility] Last Admin: 08/21/16 08:50 Dose: 100 mls/hr Sodium Chloride (Normal Saline) 250 mls @ 100 mls/hr IV ASDIRECTED [facility] Last Admin: 08/19/16 13:55 Dose: 100 mls/hr Potassium Chloride/Sodium Chloride (Normal Saline With 20 Meq Kcl) 1,000 mls @ 100 mls/hr IV Q10H [facility] Last Admin: 08/21/16 02:44 Dose: 100 mls/hr Iopamidol (Isovue-370 (76%)) 100 ml IV . DIRECTED [facility] Last Admin: 08/17/16 11:17 Dose: 100 ml Ketorolac Tromethamine (Toradol) 15 mg IVPUSH Q6H [facility] Last Admin: 08/21/16 06:02 Dose: 15 mg Levothyroxine Sodium (Synthroid) 50 mcg PO MoTuThFrSa@0600 [facility] Last Admin: 08/21/16 06:02 Dose: 50 mcg Levothyroxine Sodium (Synthroid) 100 mcg PO SuWe@0600 [facility] Last Admin: 08/19/16 06:36 Dose: 100 mcg Morphine Sulfate (Morphine) 2 mg IVPUSH Q1H PRN PRN Reason: Pain (severe 7-10) Last Admin: 08/18/16 05:34 Dose: 2 mg Non-Formulary Medication (Betamethasone/Propylene Glyc [Diprolene 0.05%]) 1 dose TOP ASDIRECTED [facility] Non-Formulary Medication ([place] Carbonate [Eskalith Cr]) 900 mg PO DAILY [facility] Last Admin: 08/20/16 09:40 Dose: 900 mg Ondansetron HCl (Zofran) 4 mg IVPUSH Q6H PRN PRN Reason: Nausea/Vomiting Pantoprazole Sodium (Protonix Iv) 40 mg IVPUSH 1800 [facility] Last Admin: 08/20/16 18:41 Dose: 40 mg Sodium Chloride (Saline Flush) 10 ml FLUSH ASDIRECTED PRN PRN Reason: Keep Vein Open Last Admin: 08/20/16 18:54 Dose: 10 ml Discontinued Medications Bupivacaine HCl/Epinephrine Bitart (Marcaine 0.5%/Epinephrine 1:200,000) 20 ml INJECT .STK-MED ONE Stop: 08/17/16 14:28 Last Admin: 08/17/16 14:27 Dose: 20 ml Citric Acid/Sodium Citrate (Bicitra Solution) 30 ml PO .STK-MED ONE Stop: 08/17/16 14:01 Dexamethasone (Dexamethasone) 4 mg IVPUSH .STK-MED ONE Stop: 08/17/16 14:01 Ephedrine Sulfate (Ephedrine Sulfate) 10 mg IV .STK-MED ONE Stop: 08/17/16 14:01 Fentanyl (Sublimaze) 25 mcg IVPUSH Q5M PRN PRN Reason: Pain Fentanyl (Sublimaze) 100 mcg IV .STK-MED ONE Stop: 08/17/16 14:01 Glycopyrrolate () 0.4 mg IVPUSH .STK-MED ONE Stop: 08/17/16 14:01 Hydromorphone HCl (Dilaudid) 0.2 mg IVPUSH Q10M PRN PRN Reason: Pain (severe 7-10) Hydromorphone HCl (Dilaudid) 0.8 mg IV .STK-MED ONE Stop: 08/17/16 14:01 Sodium Chloride (Normal Saline) 1,000 mls @ 999 mls/hr IV .BOLUS ONE Stop: 08/17/16 11:21 Last Admin: 08/17/16 10:36 Dose: 999 mls/hr Sodium Chloride (Normal Saline) 1,000 mls @ 999 mls/hr IV .BOLUS ONE Stop: 08/17/16 13:07 Last Admin: 08/17/16 12:12 Dose: 999 mls/hr Piperacillin Sod/Tazobactam (Sod 3.375 gm/ Sodium Chloride) 50 mls @ 100 mls/ hr IV Q6H [facility] Last Admin: 08/17/16 13:55 Dose: 100 mls/hr Lactated Ringer's (Ringers, Lactated) 1,000 mls @ 125 mls/hr IV ASDIRECTED [facility] Last Admin: 08/19/16 17:52 Dose: 125 mls/hr Potassium Chloride/Sodium Chloride (Normal Saline With 20 Meq Kcl) 1,000 mls @ 100 mls/hr IV ASDIRECTED [facility] Last Infusion: 08/20/16 06:55 Dose: 100 mls/hr Lactated Ringer's (Ringers, Lactated) 1,000 mls @ as directed IV .STK-MED ONE Stop: 08/17/16 14:01 Famotidine (Famotidine In Ns Premix) 20 mg in 50 mls @ as directed IV .STK-MED ONE Stop: 08/17/16 14:01 Ketorolac Tromethamine (Toradol) 15 mg IVPUSH Q6H [facility] Levothyroxine Sodium (Synthroid) 50 mcg PO 0600 [facility] Last Admin: 08/18/16 05:34 Dose: 50 mcg Metoclopramide HCl (Reglan) 10 mg IV ONETIME ONE Stop: 08/17/16 11:17 Last Admin: 08/17/16 12:28 Dose: Not Given Metoclopramide HCl (Reglan) 10 mg IV .STK-MED ONE Stop: 08/17/16 14:01 Midazolam HCl (Versed 1 Mg/Ml) 2 mg IV .STK-MED ONE Stop: 08/17/16 14:01 Morphine Sulfate (Morphine) 4 mg IVPUSH ONETIME ONE Stop: 08/17/16 10:05 Last Admin: 08/17/16 10:14 Dose: 4 mg Morphine Sulfate (Morphine) 4 mg IM ONETIME ONE Stop: 08/17/16 10:21 Last Admin: 08/17/16 10:28 Dose: 4 mg Morphine Sulfate (Morphine) 1 mg IVPUSH Q2H [facility] Morphine Sulfate (Morphine) 2 mg IVPUSH ONETIME ONE Stop: 08/17/16 12:40 Last Admin: 08/17/16 12:47 Dose: 2 mg Morphine Sulfate (Morphine) 2 mg IVPUSH Q1H PRN PRN Reason: Pain (severe 7-10) Last Admin: 08/18/16 07:28 Dose: 2 mg Neostigmine Methylsulfate (Neostigmine) 3 mg IV .STK-MED ONE Stop: 08/17/16 14:01 Ondansetron HCl (Zofran) 4 mg IVPUSH Q4H PRN PRN Reason: Nausea/Vomiting Last Admin: 08/17/16 10:47 Dose: 4 mg Ondansetron HCl (Zofran) 4 mg IV Q6H PRN PRN Reason: Nausea/Vomiting Ondansetron HCl (Zofran) 4 mg IVPUSH ONETIME PRN PRN Reason: Nausea/Vomiting Ondansetron HCl (Zofran) 4 mg IVPUSH .STK-MED ONE Stop: 08/17/16 14:01 Propofol (Diprivan 20 Ml) 200 mg IV .STK-MED ONE Stop: 08/17/16 14:01 Rocuronium [place] (Zemuron) 40 mg IV .STK-MED ONE Stop: 08/17/16 14:01 Succinylcholine Chloride (Succinylcholine In Ns Pf) 140 mg IV .STK-MED ONE Stop: 08/17/16 14:01 - Exam Wound/Incisions: healing well General: alert, oriented Lungs: Normal respiratory effort - Problem List Review Problem List Initiated/Reviewed/Updated: Yes - My Orders Last 24 Hours: Active Orders 24 hr Category Date Time Status Full Liquid Diet [DIET] Diet 08/21/16 Breakfast Ordered NS + KCl 20mEq/L [Normal Saline with 20 mEq KCl] 1,000 Med 08/20/16 16:00 Active ml IV Q10H Medication Orders Hydrocodone Bitart/Acetaminophen ([place] 325-5 Mg) 2 tab PO Q4H PRN PRN Reason: Pain (moderate 4-6) Last Admin: 08/20/16 06:30 Dose: 2 tab Admin: 08/20/16 02:21 Dose: 2 tab Admin: 08/19/16 21:18 Dose: 2 tab Admin: 08/19/16 16:37 Dose: 2 tab Admin: 08/19/16 06:37 Dose: 2 tab Admin: 08/19/16 02:38 Dose: 2 tab Admin: 08/18/16 22:28 Dose: 2 tab Admin: 08/18/16 18:39 Dose: 2 tab Admin: 08/18/16 14:30 Dose: 2 tab Hydrocodone Bitart/Acetaminophen ([place] 325-5 Mg) 1 tab PO Q4H PRN PRN Reason: Pain (mild 1-3) Last Admin: 08/21/16 04:22 Dose: 1 tab Admin: 08/20/16 22:38 Dose: 1 tab Admin: 08/18/16 10:42 Dose: 1 tab Admin: 08/18/16 08:31 Dose: 1 tab Albuterol (Proventil Neb Soln) 2.5 mg NEB QIDRT [facility] Last Admin: 08/21/16 07:21 Dose: 2.5 mg Admin: 08/20/16 20:14 Dose: 2.5 mg Admin: 08/20/16 15:08 Dose: 2.5 mg Admin: 08/20/16 10:43 Dose: 2.5 mg Admin: 08/20/16 07:05 Dose: 2.5 mg Admin: 08/19/16 20:39 Dose: 2.5 mg Admin: 08/19/16 15:08 Dose: 2.5 mg Admin: 08/19/16 10:51 Dose: 2.5 mg Hydrochlorothiazide (Hydrochlorothiazide) 25 mg PO DAILY [facility] Last Admin: 08/18/16 09:33 Dose: Not Given Lactated Ringer's (Ringers, Lactated) 1,000 mls @ 250 mls/hr IV ASDIRECTED [facility] Piperacillin Sod/Tazobactam (Sod 3.375 gm/ Sodium Chloride) 50 mls @ 100 mls/ hr IV Q6H [facility] Last Admin: 08/21/16 08:50 Dose: 100 mls/hr Admin: 08/21/16 02:07 Dose: 100 mls/hr Admin: 08/20/16 20:11 Dose: 100 mls/hr Admin: 08/20/16 14:39 Dose: 100 mls/hr Admin: 08/20/16 08:10 Dose: 100 mls/hr Admin: 08/20/16 02:08 Dose: 100 mls/hr Admin: 08/19/16 20:37 Dose: 100 mls/hr Admin: 08/19/16 13:55 Dose: 100 mls/hr Admin: 08/19/16 08:57 Dose: 100 mls/hr Admin: 08/19/16 01:48 Dose: 100 mls/hr Admin: 08/18/16 19:47 Dose: 100 mls/hr Admin: 08/18/16 14:32 Dose: 100 mls/hr Admin: 08/18/16 08:40 Dose: 100 mls/hr Admin: 08/18/16 01:35 Dose: 100 mls/hr Admin: 08/17/16 20:22 Dose: 100 mls/hr Sodium Chloride (Normal Saline) 250 mls @ 100 mls/hr IV ASDIRECTED [facility] Last Admin: 08/19/16 13:55 Dose: 100 mls/hr Admin: 08/19/16 08:57 Dose: 100 mls/hr Admin: 08/19/16 01:48 Dose: 100 mls/hr Potassium Chloride/Sodium Chloride (Normal Saline With 20 Meq Kcl) 1,000 mls @ 100 mls/hr IV Q10H [facility] Last Admin: 08/21/16 02:44 Dose: 100 mls/hr Infusion: 08/21/16 02:03 Dose: 100 mls/hr Admin: 08/20/16 16:03 Dose: 100 mls/hr Iopamidol (Isovue-370 (76%)) 100 ml IV . DIRECTED [facility] Last Admin: 08/17/16 11:17 Dose: 100 ml Ketorolac Tromethamine (Toradol) 15 mg IVPUSH Q6H [facility] Last Admin: 08/21/16 06:02 Dose: 15 mg Admin: 08/21/16 00:22 Dose: 15 mg Admin: 08/20/16 18:40 Dose: 15 mg Admin: 08/20/16 12:43 Dose: 15 mg Admin: 08/20/16 07:01 Dose: 15 mg Levothyroxine Sodium (Synthroid) 50 mcg PO [id number]@0600 [facility] Last Admin: 08/21/16 06:02 Dose: 50 mcg Admin: 08/20/16 06:28 Dose: 50 mcg Levothyroxine Sodium (Synthroid) 100 mcg PO [id number]@0600 [facility] Last Admin: 08/19/16 06:36 Dose: 100 mcg Morphine Sulfate (Morphine) 2 mg IVPUSH Q1H PRN PRN Reason: Pain (severe 7-10) Last Admin: 08/18/16 05:34 Dose: 2 mg Admin: 08/18/16 03:40 Dose: 2 mg Admin: 08/18/16 01:30 Dose: 2 mg Admin: 08/17/16 23:12 Dose: 2 mg Non-Formulary Medication (Betamethasone/Propylene Glyc [Diprolene 0.05%]) 1 dose TOP ASDIRECTED [facility] Non-Formulary Medication ([place] Carbonate [Eskalith Cr]) 900 mg PO DAILY [facility] Last Admin: 08/20/16 09:40 Dose: 900 mg Admin: 08/19/16 09:01 Dose: 900 mg Admin: 08/18/16 13:03 Dose: 900 mg Ondansetron HCl (Zofran) 4 mg IVPUSH Q6H PRN PRN Reason: Nausea/Vomiting Pantoprazole Sodium (Protonix Iv) 40 mg IVPUSH 1800 [facility] Last Admin: 08/20/16 18:41 Dose: 40 mg Admin: 08/19/16 17:36 Dose: 40 mg Admin: 08/18/16 17:46 Dose: 40 mg Admin: 08/17/16 17:50 Dose: 40 mg Sodium Chloride (Saline Flush) 10 ml FLUSH ASDIRECTED PRN PRN Reason: Keep Vein Open Last Admin: 08/20/16 18:54 Dose: 10 ml Admin: 08/17/16 10:16 Dose: 10 ml Admin: 08/17/16 10:14 Dose: 10 ml Admin: 08/17/16 10:13 Dose: 10 ml - Assessment Assessment (Free Text/Narrative):: POD#4 Appendectomy for ruptured appendicitis WBC still elevated but remains afebrile and generally improving GI function appears to be beginning to return - Plan Plan (Free Text/Narrative):: Slowly advance diet continue IV antibiotics
[2016-08-21] MEDS: LITHIUM CARBONATE 900 MG PO SCH (09:39)
[2016-08-21] MEDS: Hydrochlorothiazide 25 MG Tab PO SCH (14:16)
[2016-08-21] MEDS: Pantoprazole 40 MG Vial IVPUSH SCH (17:51)
[2016-08-22] MEDS: Ketorolac 15 MG/ML SDV IVPUSH SCH ×4 (01:15→19:02)
[2016-08-22] MEDS: Piperacillin/Tazobactam 3.375 GM in Sodium Chloride 0.9% 50 ML IV SCH ×4 (01:16→20:12)
[2016-08-22] MEDS: Levothyroxine 50 MCG Tab PO SCH (05:18)
[2016-08-22] MEDS: Albuterol 0.083% 2.5 MG/3 ML Neb Soln NEB SCH ×4 (08:19→21:07)
[2016-08-22] MEDS: LITHIUM CARBONATE 900 MG PO SCH (09:02)
[2016-08-22] MEDS: Hydrochlorothiazide 25 MG Tab PO SCH (09:02)
[2016-08-22] MEDS: Acetaminophen/HYDROcodone 325-5 MG Tab PO PRN ×3 (09:13→21:06)
--- NOTE | 2016-08-22 09:54 | PCM.SURGPN ---
- General Info Date of Service: 08/22/16 Date of Surgery/Procedure: 08/17/16 POD#: 5 Functional Status: Reports: pain controlled (better today) - Review of Systems Pulmonary: Denies: shortness of breath Gastrointestinal: Reports: Flatus, Other (Beginning to pass loose stool this am) Musculoskeletal: Reports: other (feels some swelling continuing in feet, no calf pain) - Patient Data Vitals - most recent: Last Vital Signs Temp 97.8 F 08/22/16 08:55 Pulse 88 08/22/16 08:20 Resp 18 08/22/16 08:55 BP 148/88 H 08/22/16 08:55 Pulse Ox 97 08/22/16 08:55 Weight - most recent: 190 lb I&O - last 24 hours: Intake & Output 08/21/16 08/22/16 08/22/16 22:59 06:59 14:59 Intake Total 888 673 200 Output Total 1650 1350 250 Balance -762 -677 -50 Lab Results last 24 hrs: Laboratory Results - last 24 hr 08/22/16 08/22/16 Range/Units 06:30 06:30 WBC 15.1 H (4.5-12.0) X10-3/uL RBC 3.33 (3.23-5.20) x10(6)uL Hgb 10.1 L (11.5-15.5) g/dL Hct 30.8 (30.0-51.3) % MCV 92.3 (80-96) fL MCH 30.4 (27.7-33.6) pg MCHC 33.0 (32.2-35.4) g/dL RDW 12.7 (11.5-15.5) % Plt Count 298 (125-369) X10(3)uL MPV 7.7 (7.4-10.4) fL Add Manual Diff Yes Neutrophils % (Manual) 73 (46-82) % Band Neutrophils % 2 (0-6) % Lymphocytes % (Manual) 12 L (13-37) % Monocytes % (Manual) 9 (4-12) % Eosinophils % (Manual) 4 (0-5) % Toxic Granulation Few H (NOT SEEN) Potassium 3.4 L (3.5-5.3) mmol/L Anoop Results last 24 hrs: Microbiology 08/17/16 15:30 Gram Stain - Final Appendix Routine Culture - Final 08/17/16 15:30 Anaerobic Culture - Preliminary Appendix Med Orders - Current: Current Medications Hydrocodone Bitart/Acetaminophen (Cameron 325-5 Mg) 2 tab PO Q4H PRN PRN Reason: Pain (moderate 4-6) Last Admin: 08/22/16 09:13 Dose: 2 tab Hydrocodone Bitart/Acetaminophen (Cameron 325-5 Mg) 1 tab PO Q4H PRN PRN Reason: Pain (mild 1-3) Last Admin: 08/21/16 15:08 Dose: 1 tab Albuterol (Proventil Neb Soln) 2.5 mg NEB QIDRT [facility] Last Admin: 08/22/16 08:19 Dose: 2.5 mg Hydrochlorothiazide (Hydrochlorothiazide) 25 mg PO DAILY [facility] Last Admin: 08/22/16 09:02 Dose: 25 mg Piperacillin Sod/Tazobactam (Sod 3.375 gm/ Sodium Chloride) 50 mls @ 100 mls/ hr IV Q6H [facility] Last Admin: 08/22/16 09:00 Dose: 100 mls/hr Sodium Chloride (Normal Saline) 250 mls @ 100 mls/hr IV ASDIRECTED [facility] Last Admin: 08/19/16 13:55 Dose: 100 mls/hr Potassium Chloride/Sodium Chloride (Normal Saline With 20 Meq Kcl) 1,000 mls @ 50 mls/hr IV Q20H [facility] Last Admin: 08/21/16 15:15 Dose: 50 mls/hr Iopamidol (Isovue-370 (76%)) 100 ml IV . DIRECTED [facility] Last Admin: 08/17/16 11:17 Dose: 100 ml Ketorolac Tromethamine (Toradol) 15 mg IVPUSH Q6H [facility] Last Admin: 08/22/16 05:30 Dose: 15 mg Levothyroxine Sodium (Synthroid) 50 mcg PO [id number]@0600 [facility] Last Admin: 08/22/16 05:18 Dose: 50 mcg Levothyroxine Sodium (Synthroid) 100 mcg PO SuWe@0600 [facility] Last Admin: 08/19/16 06:36 Dose: 100 mcg Mirtazapine (Remeron) 15 mg PO BEDTIME [facility] Morphine Sulfate (Morphine) 2 mg IVPUSH Q1H PRN PRN Reason: Pain (severe 7-10) Last Admin: 08/18/16 05:34 Dose: 2 mg Non-Formulary Medication (Betamethasone/Propylene Glyc [Diprolene 0.05%]) 1 dose TOP ASDIRECTED [facility] Non-Formulary Medication (Cadiz Carbonate [Eskalith Cr]) 900 mg PO DAILY [facility] Last Admin: 08/22/16 09:02 Dose: 900 mg Ondansetron HCl (Zofran) 4 mg IVPUSH Q6H PRN PRN Reason: Nausea/Vomiting Pantoprazole Sodium (Protonix Iv) 40 mg IVPUSH 1800 [facility] Last Admin: 08/21/16 17:51 Dose: 40 mg Potassium Chloride (Klor-Con M20) 20 meq PO TID [facility] Sodium Chloride (Saline Flush) 10 ml FLUSH ASDIRECTED PRN PRN Reason: Keep Vein Open Last Admin: 08/20/16 18:54 Dose: 10 ml Discontinued Medications Bupivacaine HCl/Epinephrine Bitart (Marcaine 0.5%/Epinephrine 1:200,000) 20 ml INJECT .STK-MED ONE Stop: 08/17/16 14:28 Last Admin: 08/17/16 14:27 Dose: 20 ml Citric Acid/Sodium Citrate (Bicitra Solution) 30 ml PO .STK-MED ONE Stop: 08/17/16 14:01 Dexamethasone (Dexamethasone) 4 mg IVPUSH .STK-MED ONE Stop: 08/17/16 14:01 Ephedrine Sulfate (Ephedrine Sulfate) 10 mg IV .STK-MED ONE Stop: 08/17/16 14:01 Fentanyl (Sublimaze) 25 mcg IVPUSH Q5M PRN PRN Reason: Pain Fentanyl (Sublimaze) 100 mcg IV .STK-MED ONE Stop: 08/17/16 14:01 Glycopyrrolate () 0.4 mg IVPUSH .STK-MED ONE Stop: 08/17/16 14:01 Hydrochlorothiazide (Hydrochlorothiazide) 25 mg PO DAILY [facility] Last Admin: 08/18/16 09:33 Dose: Not Given Hydromorphone HCl (Dilaudid) 0.2 mg IVPUSH Q10M PRN PRN Reason: Pain (severe 7-10) Hydromorphone HCl (Dilaudid) 0.8 mg IV .STK-MED ONE Stop: 08/17/16 14:01 Sodium Chloride (Normal Saline) 1,000 mls @ 999 mls/hr IV .BOLUS ONE Stop: 08/17/16 11:21 Last Admin: 08/17/16 10:36 Dose: 999 mls/hr Sodium Chloride (Normal Saline) 1,000 mls @ 999 mls/hr IV .BOLUS ONE Stop: 08/17/16 13:07 Last Admin: 08/17/16 12:12 Dose: 999 mls/hr Lactated Ringer's (Ringers, Lactated) 1,000 mls @ 250 mls/hr IV ASDIRECTED [facility] Piperacillin Sod/Tazobactam (Sod 3.375 gm/ Sodium Chloride) 50 mls @ 100 mls/ hr IV Q6H [facility] Last Admin: 08/17/16 13:55 Dose: 100 mls/hr Lactated Ringer's (Ringers, Lactated) 1,000 mls @ 125 mls/hr IV ASDIRECTED [facility] Last Admin: 08/19/16 17:52 Dose: 125 mls/hr Potassium Chloride/Sodium Chloride (Normal Saline With 20 Meq Kcl) 1,000 mls @ 100 mls/hr IV ASDIRECTED [facility] Last Infusion: 08/20/16 06:55 Dose: 100 mls/hr Lactated Ringer's (Ringers, Lactated) 1,000 mls @ as directed IV .STK-MED ONE Stop: 08/17/16 14:01 Famotidine (Famotidine In Ns Premix) 20 mg in 50 mls @ as directed IV .STK-MED ONE Stop: 08/17/16 14:01 Potassium Chloride/Sodium Chloride (Normal Saline With 20 Meq Kcl) 1,000 mls @ 100 mls/hr IV Q10H [facility] Last Admin: 08/21/16 14:39 Dose: Not Given Ketorolac Tromethamine (Toradol) 15 mg IVPUSH Q6H [facility] Levothyroxine Sodium (Synthroid) 50 mcg PO 0600 [facility] Last Admin: 08/18/16 05:34 Dose: 50 mcg Metoclopramide HCl (Reglan) 10 mg IV ONETIME ONE Stop: 08/17/16 11:17 Last Admin: 08/17/16 12:28 Dose: Not Given Metoclopramide HCl (Reglan) 10 mg IV .STK-MED ONE Stop: 08/17/16 14:01 Midazolam HCl (Versed 1 Mg/Ml) 2 mg IV .STK-MED ONE Stop: 08/17/16 14:01 Morphine Sulfate (Morphine) 4 mg IVPUSH ONETIME ONE Stop: 08/17/16 10:05 Last Admin: 08/17/16 10:14 Dose: 4 mg Morphine Sulfate (Morphine) 4 mg IM ONETIME ONE Stop: 08/17/16 10:21 Last Admin: 08/17/16 10:28 Dose: 4 mg Morphine Sulfate (Morphine) 1 mg IVPUSH Q2H [facility] Morphine Sulfate (Morphine) 2 mg IVPUSH ONETIME ONE Stop: 08/17/16 12:40 Last Admin: 08/17/16 12:47 Dose: 2 mg Morphine Sulfate (Morphine) 2 mg IVPUSH Q1H PRN PRN Reason: Pain (severe 7-10) Last Admin: 08/18/16 07:28 Dose: 2 mg Neostigmine Methylsulfate (Neostigmine) 3 mg IV .STK-MED ONE Stop: 08/17/16 14:01 Ondansetron HCl (Zofran) 4 mg IVPUSH Q4H PRN PRN Reason: Nausea/Vomiting Last Admin: 08/17/16 10:47 Dose: 4 mg Ondansetron HCl (Zofran) 4 mg IV Q6H PRN PRN Reason: Nausea/Vomiting Ondansetron HCl (Zofran) 4 mg IVPUSH ONETIME PRN PRN Reason: Nausea/Vomiting Ondansetron HCl (Zofran) 4 mg IVPUSH .STK-MED ONE Stop: 08/17/16 14:01 Propofol (Diprivan 20 Ml) 200 mg IV .STK-MED ONE Stop: 08/17/16 14:01 Rocuronium [place] (Zemuron) 40 mg IV .STK-MED ONE Stop: 08/17/16 14:01 Succinylcholine Chloride (Succinylcholine In Ns Pf) 140 mg IV .STK-MED ONE Stop: 08/17/16 14:01 - Exam Wound/Incisions: healing well, no drainage. No: erythema General: alert, oriented Lungs: Normal respiratory effort, Rales (fine in bases but improved from yesterday) Extremities: no calf tenderness, edema (1+ in ankles and feet) Psy/Mental Status: alert - Problem List Review Problem List Initiated/Reviewed/Updated: Yes - My Orders Last 24 Hours: Active Orders 24 hr Category Date Time Status CBC WITH MANUAL DIFF [HEME] AM Lab 08/23/16 05:11 Ordered POTASSIUM,K [CHEM] AM Lab 08/23/16 05:11 Ordered Hydrochlorothiazide Med 08/21/16 12:09 Active 25 mg PO DAILY Mirtazapine [Remeron] Med 08/22/16 21:00 Ordered 15 mg PO BEDTIME NS + KCl 20mEq/L [Normal Saline with 20 mEq KCl] 1,000 Med 08/21/16 13:00 Active ml IV Q20H Potassium Chloride [Klor-Con M20] Med 08/22/16 14:00 Ordered 20 meq PO TID Convert IV to Saline Lock [OM.PC] Routine Oth 08/22/16 09:46 Ordered Medication Orders Hydrocodone Bitart/Acetaminophen (Cameron 325-5 Mg) 2 tab PO Q4H PRN PRN Reason: Pain (moderate 4-6) Last Admin: 08/22/16 09:13 Dose: 2 tab Admin: 08/21/16 20:33 Dose: 2 tab Admin: 08/20/16 06:30 Dose: 2 tab Admin: 08/20/16 02:21 Dose: 2 tab Admin: 08/19/16 21:18 Dose: 2 tab Admin: 08/19/16 16:37 Dose: 2 tab Admin: 08/19/16 06:37 Dose: 2 tab Admin: 08/19/16 02:38 Dose: 2 tab Admin: 08/18/16 22:28 Dose: 2 tab Admin: 08/18/16 18:39 Dose: 2 tab Admin: 08/18/16 14:30 Dose: 2 tab Hydrocodone Bitart/Acetaminophen (Cameron 325-5 Mg) 1 tab PO Q4H PRN PRN Reason: Pain (mild 1-3) Last Admin: 08/21/16 15:08 Dose: 1 tab Admin: 08/21/16 04:22 Dose: 1 tab Admin: 08/20/16 22:38 Dose: 1 tab Admin: 08/18/16 10:42 Dose: 1 tab Admin: 08/18/16 08:31 Dose: 1 tab Albuterol (Proventil Neb Soln) 2.5 mg NEB QIDRT [facility] Last Admin: 08/22/16 08:19 Dose: 2.5 mg Admin: 08/21/16 20:35 Dose: 2.5 mg Admin: 08/21/16 15:00 Dose: 2.5 mg Admin: 08/21/16 11:21 Dose: 2.5 mg Admin: 08/21/16 07:21 Dose: 2.5 mg Admin: 08/20/16 20:14 Dose: 2.5 mg Admin: 08/20/16 15:08 Dose: 2.5 mg Admin: 08/20/16 10:43 Dose: 2.5 mg Admin: 08/20/16 07:05 Dose: 2.5 mg Admin: 08/19/16 20:39 Dose: 2.5 mg Admin: 08/19/16 15:08 Dose: 2.5 mg Admin: 08/19/16 10:51 Dose: 2.5 mg Hydrochlorothiazide (Hydrochlorothiazide) 25 mg PO DAILY [facility] Last Admin: 08/22/16 09:02 Dose: 25 mg Admin: 08/21/16 14:16 Dose: 25 mg Piperacillin Sod/Tazobactam (Sod 3.375 gm/ Sodium Chloride) 50 mls @ 100 mls/ hr IV Q6H [facility] Last Admin: 08/22/16 09:00 Dose: 100 mls/hr Admin: 08/22/16 01:16 Dose: 100 mls/hr Admin: 08/21/16 20:30 Dose: 100 mls/hr Admin: 08/21/16 14:18 Dose: 100 mls/hr Admin: 08/21/16 08:50 Dose: 100 mls/hr Admin: 08/21/16 02:07 Dose: 100 mls/hr Admin: 08/20/16 20:11 Dose: 100 mls/hr Admin: 08/20/16 14:39 Dose: 100 mls/hr Admin: 08/20/16 08:10 Dose: 100 mls/hr Admin: 08/20/16 02:08 Dose: 100 mls/hr Admin: 08/19/16 20:37 Dose: 100 mls/hr Admin: 08/19/16 13:55 Dose: 100 mls/hr Admin: 08/19/16 08:57 Dose: 100 mls/hr Admin: 08/19/16 01:48 Dose: 100 mls/hr Admin: 08/18/16 19:47 Dose: 100 mls/hr Admin: 08/18/16 14:32 Dose: 100 mls/hr Admin: 08/18/16 08:40 Dose: 100 mls/hr Admin: 08/18/16 01:35 Dose: 100 mls/hr Admin: 08/17/16 20:22 Dose: 100 mls/hr Sodium Chloride (Normal Saline) 250 mls @ 100 mls/hr IV ASDIRECTED [facility] Last Admin: 08/19/16 13:55 Dose: 100 mls/hr Admin: 08/19/16 08:57 Dose: 100 mls/hr Admin: 08/19/16 01:48 Dose: 100 mls/hr Potassium Chloride/Sodium Chloride (Normal Saline With 20 Meq Kcl) 1,000 mls @ 50 mls/hr IV Q20H [facility] Last Admin: 08/21/16 15:15 Dose: 50 mls/hr Iopamidol (Isovue-370 (76%)) 100 ml IV . DIRECTED [facility] Last Admin: 08/17/16 11:17 Dose: 100 ml Ketorolac Tromethamine (Toradol) 15 mg IVPUSH Q6H [facility] Last Admin: 08/22/16 05:30 Dose: 15 mg Admin: 08/22/16 01:15 Dose: 15 mg Admin: 08/21/16 17:48 Dose: 15 mg Admin: 08/21/16 12:34 Dose: 15 mg Admin: 08/21/16 06:02 Dose: 15 mg Admin: 08/21/16 00:22 Dose: 15 mg Admin: 08/20/16 18:40 Dose: 15 mg Admin: 08/20/16 12:43 Dose: 15 mg Admin: 08/20/16 07:01 Dose: 15 mg Levothyroxine Sodium (Synthroid) 50 mcg PO MoTuThFrSa@0600 [facility] Last Admin: 08/22/16 05:18 Dose: 50 mcg Admin: 08/21/16 06:02 Dose: 50 mcg Admin: 08/20/16 06:28 Dose: 50 mcg Levothyroxine Sodium (Synthroid) 100 mcg PO SuWe@0600 [facility] Last Admin: 04/19/17 06:36 Dose: 100 mcg Mirtazapine (Remeron) 15 mg PO BEDTIME [facility] Morphine Sulfate (Morphine) 2 mg IVPUSH Q1H PRN PRN Reason: Pain (severe 7-10) Last Admin: 08/18/16 05:34 Dose: 2 mg Admin: 08/18/16 03:40 Dose: 2 mg Admin: 08/18/16 01:30 Dose: 2 mg Admin: 08/17/16 23:12 Dose: 2 mg Non-Formulary Medication (Betamethasone/Propylene Glyc [Diprolene 0.05%]) 1 dose TOP ASDIRECTED [facility] Non-Formulary Medication (Cadiz Carbonate [Eskalith Cr]) 900 mg PO DAILY [facility] Last Admin: 08/22/16 09:02 Dose: 900 mg Admin: 08/21/16 09:39 Dose: 900 mg Admin: 08/20/16 09:40 Dose: 900 mg Admin: 08/19/16 09:01 Dose: 900 mg Admin: 08/18/16 13:03 Dose: 900 mg Ondansetron HCl (Zofran) 4 mg IVPUSH Q6H PRN PRN Reason: Nausea/Vomiting Pantoprazole Sodium (Protonix Iv) 40 mg IVPUSH 1800 [facility] Last Admin: 08/21/16 17:51 Dose: 40 mg Admin: 08/20/16 18:41 Dose: 40 mg Admin: 08/19/16 17:36 Dose: 40 mg Admin: 08/18/16 17:46 Dose: 40 mg Admin: 08/17/16 17:50 Dose: 40 mg Potassium Chloride (Klor-Con M20) 20 meq PO TID [facility] Sodium Chloride (Saline Flush) 10 ml FLUSH ASDIRECTED PRN PRN Reason: Keep Vein Open Last Admin: 08/20/16 18:54 Dose: 10 ml Admin: 08/17/16 10:16 Dose: 10 ml Admin: 08/17/16 10:14 Dose: 10 ml Admin: 08/17/16 10:13 Dose: 10 ml - Assessment Assessment (Free Text/Narrative):: POD#5 removal of ruptured appendix - slowly improving Afebrile WBC slightly down this am - cultures show 2 organisms sensitive to antibiotics K+ slightly down this am - Plan Plan (Free Text/Narrative):: Give PO potassium saline lock IV continue IV antibiotics Monitor PO intake and may increase diet if tolerates later
[2016-08-22] MEDS ORDERED: Sodium Chloride 0.9% 250 ML IV SCH (11:15)
[2016-08-22] MEDS: NS + KCl 20mEq/L 1,000 ML IV SCH (13:08)
[2016-08-22] MEDS: Potassium Chloride 20 MEQ Tab.ER PO SCH ×2 (13:09→21:07)
[2016-08-22] MEDS: Sodium Chloride 0.9% 10 ML Syringe FLUSH PRN ×3 (13:09→20:12)
[2016-08-22] MEDS: Sodium Chloride 0.9% 250 ML IV SCH (13:22)
[2016-08-22] MEDS: Pantoprazole 40 MG Vial IVPUSH SCH (18:44)
[2016-08-22] MEDS ORDERED: Mirtazapine 15 MG Tab PO SCH (21:00)
[2016-08-23] MEDS: Ketorolac 15 MG/ML SDV IVPUSH SCH ×3 (01:07→11:54)
[2016-08-23] MEDS: Sodium Chloride 0.9% 10 ML Syringe FLUSH PRN ×3 (01:07→05:51)
[2016-08-23] MEDS: Piperacillin/Tazobactam 3.375 GM in Sodium Chloride 0.9% 50 ML IV SCH ×2 (02:41→08:55)
[2016-08-23] MEDS: Levothyroxine 100 MCG Tab PO SCH (05:51)
[2016-08-23] MEDS: Albuterol 0.083% 2.5 MG/3 ML Neb Soln NEB SCH (07:31)
--- NOTE | 2016-08-23 09:00 | PCM.SURGPN ---
- General Info Date of Service: 08/23/16 Date of Surgery/Procedure: 08/17/16 POD#: 6 Post-Op Diagnosis: Acute Ruptured Appendicitis Functional Status: Reports: pain controlled (Only mild aching) - Review of Systems Pulmonary: Reports: no symptoms Gastrointestinal: Reports: Abdominal pain (mild), Flatus (had 2 BM's yesterday) Musculoskeletal: Reports: other (notes still some swelling in feet) - Patient Data Vitals - most recent: Last Vital Signs Temp 98.2 F 08/23/16 00:00 Pulse 91 08/23/16 00:00 Resp 20 08/23/16 00:00 BP 142/91 H 08/23/16 00:00 Pulse Ox 98 08/23/16 07:31 Weight - most recent: 190 lb I&O - last 24 hours: Intake & Output 08/22/16 08/23/16 08/23/16 22:59 06:59 14:59 Intake Total 1128 588 Output Total 4000 2500 Balance -2872 -1912 Lab Results last 24 hrs: Laboratory Results - last 24 hr 08/23/16 08/23/16 Range/Units 07:00 07:00 WBC 15.8 H (4.5-12.0) X10-3/uL RBC 3.39 (3.23-5.20) x10(6)uL Hgb 10.4 L (11.5-15.5) g/dL Hct 31.5 (30.0-51.3) % MCV 93.0 (80-96) fL MCH 30.9 (27.7-33.6) pg MCHC 33.2 (32.2-35.4) g/dL RDW 12.9 (11.5-15.5) % Plt Count 373 H (125-369) X10(3)uL MPV 7.5 (7.4-10.4) fL Neutrophils % (Manual) 72 (46-82) % Band Neutrophils % 5 (0-6) % Lymphocytes % (Manual) 18 (13-37) % Monocytes % (Manual) 4 (4-12) % Metamyelocytes % 1 H (0-0) % Toxic Granulation Few H (NOT SEEN) Potassium 3.5 (3.5-5.3) mmol/L Anoop Results last 24 hrs: Microbiology 08/17/16 15:30 Gram Stain - Final Appendix Routine Culture - Final 08/17/16 15:30 Anaerobic Culture - Preliminary Appendix Med Orders - Current: Current Medications Hydrocodone Bitart/Acetaminophen ([place]win 325-5 Mg) 2 tab PO Q4H PRN PRN Reason: Pain (moderate 4-6) Last Admin: 08/22/16 21:06 Dose: 2 tab Hydrocodone Bitart/Acetaminophen ([place] 325-5 Mg) 1 tab PO Q4H PRN PRN Reason: Pain (mild 1-3) Last Admin: 08/21/16 15:08 Dose: 1 tab Albuterol (Proventil Neb Soln) 2.5 mg NEB QIDRT [facility] Last Admin: 08/23/16 07:31 Dose: 2.5 mg Hydrochlorothiazide (Hydrochlorothiazide) 25 mg PO DAILY [facility] Last Admin: 08/22/16 09:02 Dose: 25 mg Piperacillin Sod/Tazobactam (Sod 3.375 gm/ Sodium Chloride) 50 mls @ 100 mls/ hr IV Q6H [facility] Last Admin: 08/23/16 02:41 Dose: 100 mls/hr Sodium Chloride (Normal Saline) 250 mls @ 100 mls/hr IV ASDIRECTED [facility] Last Admin: 08/22/16 13:22 Dose: 100 mls/hr Iopamidol (Isovue-370 (76%)) 100 ml IV . DIRECTED [facility] Last Admin: 08/17/16 11:17 Dose: 100 ml Ketorolac Tromethamine (Toradol) 15 mg IVPUSH Q6H [facility] Last Admin: 08/23/16 05:51 Dose: 15 mg Levothyroxine Sodium (Synthroid) 50 mcg PO MoTuThFrSa@0600 [facility] Last Admin: 08/22/16 05:18 Dose: 50 mcg Levothyroxine Sodium (Synthroid) 100 mcg PO SuWe@0600 [facility] Last Admin: 08/23/16 05:51 Dose: 100 mcg Mirtazapine (Remeron) 15 mg PO BEDTIME [facility] Last Admin: 08/22/16 21:07 Dose: 15 mg Morphine Sulfate (Morphine) 2 mg IVPUSH Q1H PRN PRN Reason: Pain (severe 7-10) Last Admin: 08/18/16 05:34 Dose: 2 mg Non-Formulary Medication (Betamethasone/Propylene Glyc [Diprolene 0.05%]) 1 dose TOP ASDIRECTED [facility] Non-Formulary Medication ([place] Carbonate [Eskalith Cr]) 900 mg PO DAILY [facility] Last Admin: 08/22/16 09:02 Dose: 900 mg Ondansetron HCl (Zofran) 4 mg IVPUSH Q6H PRN PRN Reason: Nausea/Vomiting Pantoprazole Sodium (Protonix Iv) 40 mg IVPUSH 1800 [facility] Last Admin: 08/22/16 18:44 Dose: 40 mg Potassium Chloride (Klor-Con M20) 20 meq PO TID [facility] Last Admin: 08/22/16 21:07 Dose: 20 meq Sodium Chloride (Saline Flush) 10 ml FLUSH ASDIRECTED PRN PRN Reason: Keep Vein Open Last Admin: 08/23/16 05:51 Dose: 10 ml Discontinued Medications Bupivacaine HCl/Epinephrine Bitart (Marcaine 0.5%/Epinephrine 1:200,000) 20 ml INJECT .STK-MED ONE Stop: 08/17/16 14:28 Last Admin: 08/17/16 14:27 Dose: 20 ml Citric Acid/Sodium Citrate (Bicitra Solution) 30 ml PO .STK-MED ONE Stop: 08/17/16 14:01 Dexamethasone (Dexamethasone) 4 mg IVPUSH .STK-MED ONE Stop: 08/17/16 14:01 Ephedrine Sulfate (Ephedrine Sulfate) 10 mg IV .STK-MED ONE Stop: 08/17/16 14:01 Fentanyl (Sublimaze) 25 mcg IVPUSH Q5M PRN PRN Reason: Pain Fentanyl (Sublimaze) 100 mcg IV .STK-MED ONE Stop: 08/17/16 14:01 Glycopyrrolate () 0.4 mg IVPUSH .STK-MED ONE Stop: 08/17/16 14:01 Hydrochlorothiazide (Hydrochlorothiazide) 25 mg PO DAILY [facility] Last Admin: 08/18/16 09:33 Dose: Not Given Hydromorphone HCl (Dilaudid) 0.2 mg IVPUSH Q10M PRN PRN Reason: Pain (severe 7-10) Hydromorphone HCl (Dilaudid) 0.8 mg IV .STK-MED ONE Stop: 08/17/16 14:01 Sodium Chloride (Normal Saline) 1,000 mls @ 999 mls/hr IV .BOLUS ONE Stop: 08/17/16 11:21 Last Admin: 08/17/16 10:36 Dose: 999 mls/hr Sodium Chloride (Normal Saline) 1,000 mls @ 999 mls/hr IV .BOLUS ONE Stop: 08/17/16 13:07 Last Admin: 08/17/16 12:12 Dose: 999 mls/hr Lactated Ringer's (Ringers, Lactated) 1,000 mls @ 250 mls/hr IV ASDIRECTED [facility] Piperacillin Sod/Tazobactam (Sod 3.375 gm/ Sodium Chloride) 50 mls @ 100 mls/ hr IV Q6H [facility] Last Admin: 08/17/16 13:55 Dose: 100 mls/hr Lactated Ringer's (Ringers, Lactated) 1,000 mls @ 125 mls/hr IV ASDIRECTED [facility] Last Admin: 08/19/16 17:52 Dose: 125 mls/hr Potassium Chloride/Sodium Chloride (Normal Saline With 20 Meq Kcl) 1,000 mls @ 100 mls/hr IV ASDIRECTED [facility] Last Infusion: 08/20/16 06:55 Dose: 100 mls/hr Lactated Ringer's (Ringers, Lactated) 1,000 mls @ as directed IV .STK-MED ONE Stop: 08/17/16 14:01 Famotidine (Famotidine In Ns Premix) 20 mg in 50 mls @ as directed IV .STK-MED ONE Stop: 08/17/16 14:01 Potassium Chloride/Sodium Chloride (Normal Saline With 20 Meq Kcl) 1,000 mls @ 100 mls/hr IV Q10H [facility] Last Admin: 08/21/16 14:39 Dose: Not Given Potassium Chloride/Sodium Chloride (Normal Saline With 20 Meq Kcl) 1,000 mls @ 50 mls/hr IV Q20H [facility] Last Admin: 08/22/16 13:08 Dose: Not Given Sodium Chloride (Normal Saline) 250 mls @ 100 mls/hr IV ASDIRECTED [facility] Ketorolac Tromethamine (Toradol) 15 mg IVPUSH Q6H [facility] Levothyroxine Sodium (Synthroid) 50 mcg PO 0600 [facility] Last Admin: 08/18/16 05:34 Dose: 50 mcg Metoclopramide HCl (Reglan) 10 mg IV ONETIME ONE Stop: 08/17/16 11:17 Last Admin: 08/17/16 12:28 Dose: Not Given Metoclopramide HCl (Reglan) 10 mg IV .STK-MED ONE Stop: 08/17/16 14:01 Midazolam HCl (Versed 1 Mg/Ml) 2 mg IV .STK-MED ONE Stop: 08/17/16 14:01 Morphine Sulfate (Morphine) 4 mg IVPUSH ONETIME ONE Stop: 08/17/16 10:05 Last Admin: 08/17/16 10:14 Dose: 4 mg Morphine Sulfate (Morphine) 4 mg IM ONETIME ONE Stop: 08/17/16 10:21 Last Admin: 08/17/16 10:28 Dose: 4 mg Morphine Sulfate (Morphine) 1 mg IVPUSH Q2H MIAN Morphine Sulfate (Morphine) 2 mg IVPUSH ONETIME ONE Stop: 08/17/16 12:40 Last Admin: 08/17/16 12:47 Dose: 2 mg Morphine Sulfate (Morphine) 2 mg IVPUSH Q1H PRN PRN Reason: Pain (severe 7-10) Last Admin: 08/18/16 07:28 Dose: 2 mg Neostigmine Methylsulfate (Neostigmine) 3 mg IV .STK-MED ONE Stop: 08/17/16 14:01 Ondansetron HCl (Zofran) 4 mg IVPUSH Q4H PRN PRN Reason: Nausea/Vomiting Last Admin: 08/17/16 10:47 Dose: 4 mg Ondansetron HCl (Zofran) 4 mg IV Q6H PRN PRN Reason: Nausea/Vomiting Ondansetron HCl (Zofran) 4 mg IVPUSH ONETIME PRN PRN Reason: Nausea/Vomiting Ondansetron HCl (Zofran) 4 mg IVPUSH .STK-MED ONE Stop: 08/17/16 14:01 Propofol (Diprivan 20 Ml) 200 mg IV .STK-MED ONE Stop: 08/17/16 14:01 Rocuronium [place] (Zemuron) 40 mg IV .STK-MED ONE Stop: 08/17/16 14:01 Succinylcholine Chloride (Succinylcholine In Ns Pf) 140 mg IV .STK-MED ONE Stop: 08/17/16 14:01 - Exam Wound/Incisions: healing well, no drainage. No: erythema General: alert, oriented Lungs: Normal respiratory effort, Rales (just few and improving) Abdomen: soft, no tenderness. No: guarding Extremities: no calf tenderness, edema (1+ in feet) - Problem List Review Problem List Initiated/Reviewed/Updated: Yes - My Orders Last 24 Hours: Active Orders 24 hr Category Date Time Status Mirtazapine [Remeron] Med 08/22/16 21:00 Active 15 mg PO BEDTIME Potassium Chloride [Klor-Con M20] Med 08/22/16 14:00 Active 20 meq PO TID Convert IV to Saline Lock [OM.PC] Routine Oth 08/22/16 09:46 Ordered Medication Orders Hydrocodone Bitart/Acetaminophen (Elwin 325-5 Mg) 2 tab PO Q4H PRN PRN Reason: Pain (moderate 4-6) Last Admin: 08/22/16 21:06 Dose: 2 tab Admin: 08/22/16 16:25 Dose: 2 tab Admin: 08/22/16 09:13 Dose: 2 tab Admin: 08/21/16 20:33 Dose: 2 tab Admin: 08/20/16 06:30 Dose: 2 tab Admin: 08/20/16 02:21 Dose: 2 tab Admin: 08/19/16 21:18 Dose: 2 tab Admin: 08/19/16 16:37 Dose: 2 tab Admin: 08/19/16 06:37 Dose: 2 tab Admin: 08/19/16 02:38 Dose: 2 tab Admin: 08/18/16 22:28 Dose: 2 tab Admin: 08/18/16 18:39 Dose: 2 tab Admin: 08/18/16 14:30 Dose: 2 tab Hydrocodone Bitart/Acetaminophen (Elwin 325-5 Mg) 1 tab PO Q4H PRN PRN Reason: Pain (mild 1-3) Last Admin: 08/21/16 15:08 Dose: 1 tab Admin: 08/21/16 04:22 Dose: 1 tab Admin: 08/20/16 22:38 Dose: 1 tab Admin: 08/18/16 10:42 Dose: 1 tab Admin: 08/18/16 08:31 Dose: 1 tab Albuterol (Proventil Neb Soln) 2.5 mg NEB QIDRT MIAN Last Admin: 08/23/16 07:31 Dose: 2.5 mg Admin: 08/22/16 21:07 Dose: 2.5 mg Admin: 08/22/16 15:09 Dose: 2.5 mg Admin: 08/22/16 12:03 Dose: 2.5 mg Admin: 08/22/16 08:19 Dose: 2.5 mg Admin: 08/21/16 20:35 Dose: 2.5 mg Admin: 08/21/16 15:00 Dose: 2.5 mg Admin: 08/21/16 11:21 Dose: 2.5 mg Admin: 08/21/16 07:21 Dose: 2.5 mg Admin: 08/20/16 20:14 Dose: 2.5 mg Admin: 08/20/16 15:08 Dose: 2.5 mg Admin: 08/20/16 10:43 Dose: 2.5 mg Admin: 08/20/16 07:05 Dose: 2.5 mg Admin: 08/19/16 20:39 Dose: 2.5 mg Admin: 08/19/16 15:08 Dose: 2.5 mg Admin: 08/19/16 10:51 Dose: 2.5 mg Hydrochlorothiazide (Hydrochlorothiazide) 25 mg PO DAILY [facility] Last Admin: 08/22/16 09:02 Dose: 25 mg Admin: 08/21/16 14:16 Dose: 25 mg Piperacillin Sod/Tazobactam (Sod 3.375 gm/ Sodium Chloride) 50 mls @ 100 mls/ hr IV Q6H [facility] Last Admin: 08/23/16 02:41 Dose: 100 mls/hr Admin: 08/22/16 20:12 Dose: 100 mls/hr Admin: 08/22/16 13:22 Dose: 100 mls/hr Admin: 08/22/16 09:00 Dose: 100 mls/hr Admin: 08/22/16 01:16 Dose: 100 mls/hr Admin: 08/21/16 20:30 Dose: 100 mls/hr Admin: 08/21/16 14:18 Dose: 100 mls/hr Admin: 08/21/16 08:50 Dose: 100 mls/hr Admin: 08/21/16 02:07 Dose: 100 mls/hr Admin: 08/20/16 20:11 Dose: 100 mls/hr Admin: 08/20/16 14:39 Dose: 100 mls/hr Admin: 08/20/16 08:10 Dose: 100 mls/hr Admin: 08/20/16 02:08 Dose: 100 mls/hr Admin: 08/19/16 20:37 Dose: 100 mls/hr Admin: 08/19/16 13:55 Dose: 100 mls/hr Admin: 08/19/16 08:57 Dose: 100 mls/hr Admin: 08/19/16 01:48 Dose: 100 mls/hr Admin: 08/18/16 19:47 Dose: 100 mls/hr Admin: 08/18/16 14:32 Dose: 100 mls/hr Admin: 08/18/16 08:40 Dose: 100 mls/hr Admin: 08/18/16 01:35 Dose: 100 mls/hr Admin: 08/17/16 20:22 Dose: 100 mls/hr Sodium Chloride (Normal Saline) 250 mls @ 100 mls/hr IV ASDIRECTED [facility] Last Admin: 08/22/16 13:22 Dose: 100 mls/hr Admin: 08/19/16 13:55 Dose: 100 mls/hr Admin: 08/19/16 08:57 Dose: 100 mls/hr Admin: 08/19/16 01:48 Dose: 100 mls/hr Iopamidol (Isovue-370 (76%)) 100 ml IV . DIRECTED [facility] Last Admin: 08/17/16 11:17 Dose: 100 ml Ketorolac Tromethamine (Toradol) 15 mg IVPUSH Q6H [facility] Last Admin: 08/23/16 05:51 Dose: 15 mg Admin: 08/23/16 01:07 Dose: 15 mg Admin: 08/22/16 19:02 Dose: 15 mg Admin: 08/22/16 13:09 Dose: 15 mg Admin: 08/22/16 05:30 Dose: 15 mg Admin: 08/22/16 01:15 Dose: 15 mg Admin: 08/21/16 17:48 Dose: 15 mg Admin: 08/21/16 12:34 Dose: 15 mg Admin: 08/21/16 06:02 Dose: 15 mg Admin: 08/21/16 00:22 Dose: 15 mg Admin: 08/20/16 18:40 Dose: 15 mg Admin: 08/20/16 12:43 Dose: 15 mg Admin: 08/20/16 07:01 Dose: 15 mg Levothyroxine Sodium (Synthroid) 50 mcg PO MoTuThFrSa@0600 [facility] Last Admin: 08/22/16 05:18 Dose: 50 mcg Admin: 08/21/16 06:02 Dose: 50 mcg Admin: 08/20/16 06:28 Dose: 50 mcg Levothyroxine Sodium (Synthroid) 100 mcg PO SuWe@0600 [facility] Last Admin: 08/23/16 05:51 Dose: 100 mcg Admin: 08/19/16 06:36 Dose: 100 mcg Mirtazapine (Remeron) 15 mg PO BEDTIME [facility] Last Admin: 08/22/16 21:07 Dose: 15 mg Morphine Sulfate (Morphine) 2 mg IVPUSH Q1H PRN PRN Reason: Pain (severe 7-10) Last Admin: 08/18/16 05:34 Dose: 2 mg Admin: 08/18/16 03:40 Dose: 2 mg Admin: 08/18/16 01:30 Dose: 2 mg Admin: 08/17/16 23:12 Dose: 2 mg Non-Formulary Medication (Betamethasone/Propylene Glyc [Diprolene 0.05%]) 1 dose TOP ASDIRECTED [facility] Non-Formulary Medication ([place] Carbonate [Eskalith Cr]) 900 mg PO DAILY [facility] Last Admin: 08/22/16 09:02 Dose: 900 mg Admin: 08/21/16 09:39 Dose: 900 mg Admin: 08/20/16 09:40 Dose: 900 mg Admin: 08/19/16 09:01 Dose: 900 mg Admin: 08/18/16 13:03 Dose: 900 mg Ondansetron HCl (Zofran) 4 mg IVPUSH Q6H PRN PRN Reason: Nausea/Vomiting Pantoprazole Sodium (Protonix Iv) 40 mg IVPUSH 1800 [facility] Last Admin: 08/22/16 18:44 Dose: 40 mg Admin: 08/21/16 17:51 Dose: 40 mg Admin: 08/20/16 18:41 Dose: 40 mg Admin: 08/19/16 17:36 Dose: 40 mg Admin: 08/18/16 17:46 Dose: 40 mg Admin: 08/17/16 17:50 Dose: 40 mg Potassium Chloride (Klor-Con M20) 20 meq PO TID MIAN Last Admin: 08/22/16 21:07 Dose: 20 meq Admin: 08/22/16 13:09 Dose: 20 meq Sodium Chloride (Saline Flush) 10 ml FLUSH ASDIRECTED PRN PRN Reason: Keep Vein Open Last Admin: 08/23/16 05:51 Dose: 10 ml Admin: 08/23/16 02:41 Dose: 10 ml Admin: 08/23/16 01:07 Dose: 10 ml Admin: 08/22/16 20:12 Dose: 10 ml Admin: 08/22/16 19:03 Dose: 10 ml Admin: 08/22/16 13:09 Dose: 10 ml Admin: 08/20/16 18:54 Dose: 10 ml Admin: 08/17/16 10:16 Dose: 10 ml Admin: 08/17/16 10:14 Dose: 10 ml Admin: 08/17/16 10:13 Dose: 10 ml - Assessment Assessment (Free Text/Narrative):: POD#6 Appendectomy for Ruptured Appendix clinically continues to improve WBC's still mildly elevated but afebrile and feels well with no chills wounds healing well Mild pedal edema - Plan Plan (Free Text/Narrative):: Discharge Rx Erythromycin for 5 more days Rx Hydrocodone for pain resume pre op meds continue HCTZ for 2-3 more days follow up in clinic in 3 days
[2016-08-23] MEDS: LITHIUM CARBONATE 900 MG PO SCH (09:06)
[2016-08-23] MEDS: Potassium Chloride 20 MEQ Tab.ER PO SCH ×2 (09:06→12:19)
[2016-08-23] MEDS: Hydrochlorothiazide 25 MG Tab PO SCH (09:08)
[2016-08-23] MEDS: Acetaminophen/HYDROcodone 325-5 MG Tab PO PRN (12:18)
[2016-08-23 12:20] VITALS: BP 144/82
--- NOTE | 2016-09-30 02:38 | DISCH ---
DISCHARGE DATE: 08/23/2016 DISCHARGE DIAGNOSES: 1. Acute ruptured appendicitis with intraabdominal peritonitis. 2. Postoperative hypokalemia. 3. Former smoker. 4. History of manic depressive condition. OPERATIONS PERFORMED: Laparoscopic appendectomy on 08/17/2016. HISTORY: This 65-year-old female, presented to the emergency room with a 3-day history of progressive low abdominal pain. She had marked abdominal tenderness on presentation and a CT scan of the abdomen was interpreted as showing an acutely inflamed appendix with surrounding inflammation. She was also noted to have an elevated serum white blood cell count. HOSPITAL COURSE: The patient was admitted and taken to the operating room, where laparoscopic appendectomy was performed. The patient was found to have a perforated appendix with severe intraperitoneal inflammation, gross stool contamination, and exudate, although no definite localized abscess was identified. The procedure was able to be accomplished laparoscopically and the patient was kept on appropriate IV antibiotics, pain control, and IV hydration. The patient did gradually improve and by the second day after surgery was slowly started on a liquid diet. She was not able to use the incentive spirometer effectively, so was given SVN treatments to reduce the risk of postoperative pneumonia. She was noted to have mild hypokalemia postoperatively and this was treated with oral potassium. She also had a persistent elevated serum white blood cell count, but remained afebrile and clinically improved to the point that by the 6th day after surgery, she was fully ambulatory, having no fever, tolerating a light diet satisfactorily and her pain was well controlled with oral agents. Her incisions were all healing well without any evidence of complication.She was felt to be stable for discharge at that time and was sent home with oral antibiotics and had a prescription for hydrocodone for pain. She will continue her regular preadmission medications and I will see her back in the outpatient clinic in three days for followup. She is to avoid heavy lifting for at least the next three weeks. /[id number] ALETA/ANEESH RUFFIN
== END 2016-08-23 13:40 | disposition home or self-care (01) | DRG 339 ==
LOC: FB.ED 09:55 → FB.SDS 13:03 → FB.MS 13:04
PROVIDERS: ADMIT Surgery; ATTEND Surgery
PROC: 0DTJ4ZZ Resection of Appendix, Percutaneous Endoscopic Approach (ICD-10-PCS; principal; 2016-08-17)
DX: K35.2 Acute appendicitis with generalized peritonitis (principal); F33.9 Major depressive disorder, recurrent, unspecified; Z87.891 Personal history of nicotine dependence; Z79.82 Long term (current) use of aspirin; E87.6 Hypokalemia
CPT/HCPCS: 36415; 74177; 80053; 81001; 82150; 83605; 83615; 83690; 84132; 84484; 85025; 86140; 87070; 87075; 87205; 88304; 94150; 94640-76; 94664; 96361; 96372; 96374; 96375; 96376; 99285; A9270-GY; C9113; J1100; J1170; J1885; J2250; J2270; J2405; J2543; J2704; J2765; J3010; J3480; J7040; J7050; J7120; Q9967

== ENCOUNTER 2016-09-03 03:47 | Inpatient (IN) | payer OTHER ==
--- NOTE | 2016-09-03 05:25 | EDM.PDOC ---
ED HPI GI/ABDOMINAL - General Chief Complaint: Neurological Problem Stated Complaint: CONFUSION POST SURGERY Time Seen by Provider: 09/03/16 05:00 Source: Reports: Patient, Old records History Limitations: Reports: No limitations - History of Present Illness INITIAL COMMENTS - FREE TEXT/NARRATIVE: Monserrat comes to [facility] ED by EMS for assessment of a suspected fall at home in the [place]. There was no LOC, but she seemed weak. He assisted her downstairs, and summoned the EMS. Upon arrival, Monserrat appears alert and orientated, although there is noticeable latency to responses. She denies headache, dizziness, cough , chest pain or SOB. She is nearly 3 weeks post op lap appy for ruptured appendix, and was seen by Dr Ignacio in Clinic yesterday for post op follow up. She denies any abdominal pain, nausea, vomiting, diarrhea or constipation. Her temp was 99.3 deg F on arrival. - Related Data Allergies/ADRs: Allergies Allergy/AdvReac Type Severity Reaction Status Date / Time No Known Allergies Allergy Verified 09/03/16 04:27 Home Meds: Home Meds Aspirin 81 mg PO DAILY 04/07/15 [History] Betamethasone/Propylene Glyc [Diprolene 0.05%] 1 dose TOP ASDIRECTED 04/07/15 [ History] Biotin 5 mg PO DAILY 04/07/15 [History] Calcium Carbonate/Vitamin D3 [Calcium 600 + Vit D 400 Softgl] 1 tab PO DAILY 10/15 [History] Cholecalciferol (Vitamin D3) [Vitamin D3] 400 units PO DAILY 04/07/15 [History] Docusate Sodium 100 mg PO DAILY 04/07/15 [History] Hydrochlorothiazide 25 mg PO DAILY PRN 04/07/15 [History] Levothyroxine Sodium [Levoxyl] 50 mcg PO MOTUTHFRSA 04/07/15 [History] [place] Carbonate [Eskalith CR] 900 mg PO DAILY 04/07/15 [History] Mirtazapine 15 mg PO BEDTIME 04/07/15 [History] Omeprazole 20 mg PO Q2D 08/17/16 [History] Levothyroxine [Synthroid] 100 mcg PO SUWE 08/18/16 [History] Zolpidem Tartrate [Ambien] 5 mg PO BEDTIME PRN 08/18/16 [History] Erythromycin Base [Erythromycin] 500 mg PO QID #20 tablet 08/23/16 [Rx] Past Medical History - Past Health History Medical/Surgical History: Denies Medical/Surgical History Cardiovascular History: Reports: Hypertension Gastrointestinal History: Reports: [employer] History: Reports: , Other (see below) Other OB/BYN History: Psychiatric History: Reports: Depression Endocrine/Metabolic History: Reports: Hypothyroidism, Obesity/BMI 30+ - Past Surgical History GI Surgical History: Reports: Appendectomy Social & Family History - Family History Family Medical History: Noncontributory - Tobacco Use Smoking Status *Q: Never Smoker Used Tobacco, but Quit: Yes Month Tobacco Last Used: unknown - Caffeine Use Caffeine Use: Reports: Coffee - Alcohol Use Days Per Week of Alcohol Use: 7 Number of Drinks Per Day: 1 Total Drinks Per Week: 7 - Recreational Drug Use Recreational Drug Use: No ED ROS GENERAL - Review of Systems Review Of Systems: See Below Constitutional: Reports: decreased appetite, weight loss (10#) HEENT: Reports: No symptoms Respiratory: Reports: No Symptoms Cardiovascular: Reports: No symptoms Endocrine: Reports: no symptoms GI/Abdominal: Reports: Decreased appetite : Reports: no symptoms Musculoskeletal: Reports: no symptoms Skin: Reports: no symptoms Neurological: Reports: No Symptoms Psychiatric: Reports: Depression Hematologic/Lymphatic: Reports: no symptoms Immunologic: Reports: no symptoms ED EXAM, GI/ABD - Physical Exam Exam: See Below Exam Limited By: No limitations General Appearance: alert, WD/WN, no apparent distress Eyes: bilateral: normal appearance, EOMI Ears: normal external exam Nose: normal inspection Throat/Mouth: Normal inspection, Normal oropharynx Head: normocephalic Neck: normal inspection, supple, non-tender, full range of motion Respiratory/Chest: lungs clear, normal breath sounds, no accessory muscle use, chest non-tender Cardiovascular: regular rate, rhythm, no edema, no JVD GI/Abdominal: normal bowel sounds, soft, non tender, no organomegaly, no distention, no mass (Female) Exam: Deferred Rectal (Female) Exam: Deferred Back Exam: normal inspection Extremities: normal inspection, normal range of motion Neurological: alert, CN II-XII intact, normal gait, no motor/sensory deficits, slow to respond Psychiatric: flat affect, other (mood neutral) Skin Exam: Warm, Dry, Intact, Normal color Lymphatic: no adenopathy Course - Vital Signs Text/Narrative:: Following admission to the [facility] ED, screening labwork noted: Hgb 11.3 gm, WBC 20 ,300 w 80% PMNs and 4% bands, plts 981,000; Alk Ptase 162, other chemistries normal for age; UA neg; ESR 85 mm/hr. A subsequent Abd-Pelvic CT w IV contrast detected a 3 cm enhancing interloop collection adjacent to the ascending colon suspicious for an abscess. I discussed case with Dr Ignacio who recommended admission and antibx management. Case was discussed with spouse and with Dr Briggs , hospitalist. Last Recorded V/S: Last Vital Signs Temp 37.0 C 09/03/16 07:03 Pulse 97 09/03/16 07:03 Resp 18 09/03/16 07:03 BP 122/56 L 09/03/16 07:03 Pulse Ox 100 09/03/16 07:03 - Orders/Labs/Meds Orders: Active Orders 24 hr Category Date Time Status Abdomen Pelvis w Cont [CT] Stat Exams 09/03/16 06:03 Taken Sodium Chloride 0.9% [Normal Saline] 1,000 ml Med 09/03/16 06:15 Active IV ASDIRECTED Sodium Chloride 0.9% [Saline Flush] Med 09/03/16 06:03 Active 10 ml FLUSH ASDIRECTED PRN Peripheral IV Insertion Adult [OM.PC] Routine Oth 09/03/16 06:03 Ordered Medication Orders Sodium Chloride (Normal Saline) 1,000 mls @ 500 mls/hr IV ASDIRECTED MIAN Last Admin: 09/03/16 06:11 Dose: 500 mls/hr Sodium Chloride (Saline Flush) 10 ml FLUSH ASDIRECTED PRN PRN Reason: Keep Vein Open Last Admin: 09/03/16 06:10 Dose: 10 ml Labs: Laboratory Tests 09/03/16 09/03/16 09/03/16 Range/Units 04:10 04:18 04:18 WBC 20.3 H (4.5-12.0) X10-3/uL RBC 3.69 (3.23-5.20) x10(6)uL Hgb 11.3 L (11.5-15.5) g/dL Hct 33.5 (30.0-51.3) % MCV 90.8 (80-96) fL MCH 30.6 (27.7-33.6) pg MCHC 33.7 (32.2-35.4) g/dL RDW 12.1 (11.5-15.5) % Plt Count 981 H* (125-369) X10(3)uL MPV 7.8 (7.4-10.4) fL Add Manual Diff Yes Neutrophils % (Manual) 80 (46-82) % Band Neutrophils % 4 (0-6) % Lymphocytes % (Manual) 11 L (13-37) % Monocytes % (Manual) 4 (4-12) % Metamyelocytes % 1 H (0-0) % ESR (0-20) mm/hr Sodium 135 (135-145) mmol/L Potassium 3.8 (3.5-5.3) mmol/L Chloride 100 D (100-110) mmol/L Carbon Dioxide 27 (23-29) mmol/L BUN 17 (8-23) mg/dL Creatinine 1.1 (0.6-1.3) mg/dL Est Cr Clr Drug Dosing TNP Estimated GFR (MDRD) 50 L (>60) BUN/Creatinine Ratio 15.5 (9-20) Glucose 121 H (80-116) mg/dL Calcium 10.1 (8.6-10.2) mg/dL Total Bilirubin 0.3 (0.1-1.3) mg/dL AST 16 D (5-27) IU/L ALT 15 (14-26) IU/L Alkaline Phosphatase 162 H (56-112) IU/L Total Protein 8.2 H (6.0-8.0) g/dL Albumin 3.3 (3.2-4.6) g/dL Globulin 4.9 g/dL Albumin/Globulin Ratio 0.7 Urine Color Yellow (YELLOW) Urine Appearance Slightly cloudy (CLEAR) Urine pH 7.0 H (5.0-6.5) Ur Specific [place] 1.005 L (1.010-1.025) Urine Protein Negative (NEGATIVE) mg/dL Urine Glucose (UA) Normal (NEGATIVE) mg/dL Urine Ketones Negative (NEGATIVE) mg/dL Urine Occult Blood Negative (NEGATIVE) Urine Nitrite Negative (NEGATIVE) Urine Bilirubin Negative (NEGATIVE) Urine Urobilinogen Normal (NEGATIVE) mg/dL Ur Leukocyte Esterase Negative (NEGATIVE) Urine RBC 0-5 (0) Urine WBC 0-5 (0) Ur Squamous Epith Cells Few H (NS,R,O) Urine Bacteria Few H (NS) 09/03/16 Range/Units 04:18 WBC (4.5-12.0) X10-3/uL RBC (3.23-5.20) x10(6)uL Hgb (11.5-15.5) g/dL Hct (30.0-51.3) % MCV (80-96) fL MCH (27.7-33.6) pg MCHC (32.2-35.4) g/dL RDW (11.5-15.5) % Plt Count (125-369) X10(3)uL MPV (7.4-10.4) fL Add Manual Diff Neutrophils % (Manual) (46-82) % Band Neutrophils % (0-6) % Lymphocytes % (Manual) (13-37) % Monocytes % (Manual) (4-12) % Metamyelocytes % (0-0) % ESR 85 H (0-20) mm/hr Sodium (135-145) mmol/L Potassium (3.5-5.3) mmol/L Chloride (100-110) mmol/L Carbon Dioxide (23-29) mmol/L BUN (8-23) mg/dL Creatinine (0.6-1.3) mg/dL Est Cr Clr Drug Dosing Estimated GFR (MDRD) (>60) BUN/Creatinine Ratio (9-20) Glucose (80-116) mg/dL Calcium (8.6-10.2) mg/dL Total Bilirubin (0.1-1.3) mg/dL AST (5-27) IU/L ALT (14-26) IU/L Alkaline Phosphatase (56-112) IU/L Total Protein (6.0-8.0) g/dL Albumin (3.2-4.6) g/dL Globulin g/dL Albumin/Globulin Ratio Urine Color (YELLOW) Urine Appearance (CLEAR) Urine pH (5.0-6.5) Ur Specific [place] (1.010-1.025) Urine Protein (NEGATIVE) mg/dL Urine Glucose (UA) (NEGATIVE) mg/dL Urine Ketones (NEGATIVE) mg/dL Urine Occult Blood (NEGATIVE) Urine Nitrite (NEGATIVE) Urine Bilirubin (NEGATIVE) Urine Urobilinogen (NEGATIVE) mg/dL Ur Leukocyte Esterase (NEGATIVE) Urine RBC (0) Urine WBC (0) Ur Squamous Epith Cells (NS,R,O) Urine Bacteria (NS) Meds: Medications Generic Name Dose Route Start Last Admin Trade Name Freq PRN Reason Stop Dose Admin Sodium Chloride 1,000 mls @ 500 mls/hr 09/03/16 06:15 09/03/16 06:11 Normal Saline IV 500 mls/hr ASDIRECTED MIAN Administration Sodium Chloride 10 ml 09/03/16 06:03 09/03/16 06:10 Saline Flush FLUSH 10 ml ASDIRECTED PRN Administration Keep Vein Open Discontinued Medications Generic Name Dose Route Start Last Admin Trade Name Freq PRN Reason Stop Dose Admin Iopamidol 100 ml 09/03/16 06:16 09/03/16 06:42 Isovue-370 (76%) IV 09/03/16 06:17 100 ml . DIRECTED ONE Administration Departure - Departure Time of Disposition: 07:30 Disposition: Admitted As Inpatient 67 Condition: fair Clinical Impression: Intra-abdominal abscess Forms: ED Department Discharge - Problem List & Annotations (1) Intra-abdominal abscess SNOMED Code(s): 84680657 Code(s): K65.1 - PERITONEAL ABSCESS Status: Acute Current Visit: Yes Annotation/Comment:: Case discussed with Dr Ignacio and Mrs Gupta will be admitted for medical management. - Problem List Review Problem List Initiated/Reviewed/Updated: Yes - My Orders Last 24 Hours: My Active Orders 09/03/16 06:03 Abdomen Pelvis w Cont [CT] Stat Sodium Chloride 0.9% [Saline Flush] 10 ml FLUSH ASDIRECTED PRN Peripheral IV Insertion Adult [OM.PC] Routine 09/03/16 06:15 Sodium Chloride 0.9% [Normal Saline] 1,000 ml IV ASDIRECTED - Assessment/Plan Last 24 Hours: My Active Orders 09/03/16 06:03 Abdomen Pelvis w Cont [CT] Stat Sodium Chloride 0.9% [Saline Flush] 10 ml FLUSH ASDIRECTED PRN Peripheral IV Insertion Adult [OM.PC] Routine 09/03/16 06:15 Sodium Chloride 0.9% [Normal Saline] 1,000 ml IV ASDIRECTED Plan: Admission to [facility].
[2016-09-03] MEDS: Sodium Chloride 0.9% 10 ML Syringe FLUSH PRN ×2 (06:10→22:30)
[2016-09-03] MEDS: Sodium Chloride 0.9% 1,000 ML IV SCH ×3 (06:11→17:05)
[2016-09-03] MEDS ORDERED: Iopamidol 755 Mg/ML 100 ML Bottle IV ONE (06:16)
[2016-09-03] MEDS ORDERED: Ampicillin/Sulbactam Na 3 GM in Sodium Chloride 0.9% 100 ML IV SCH (10:30)
[2016-09-03] MEDS ORDERED: Sodium Chloride 0.9% 250 ML IV SCH (10:45)
[2016-09-03] MEDS: Ampicillin/Sulbactam Na 3 GM in Sodium Chloride 0.9% 100 ML IV SCH ×2 (10:53→17:03)
[2016-09-03] MEDS: LITHIUM CARBONATE 450 MG PO SCH (13:52)
[2016-09-03] MEDS: Levothyroxine 50 MCG Tab PO SCH (13:52)
[2016-09-03] MEDS: Cholecalciferol (Vitamin D3) 1,000 Unit Tab PO SCH (13:53)
--- NOTE | 2016-09-03 14:00 | HP ---
ADMISSION DATE: 09/03/2016 CHIEF COMPLAINT: Increasing weakness with confusion and recent fall. HISTORY OF PRESENT ILLNESS: This patient is a 65-year-old female, who underwent laparoscopic appendectomy on 08/17/2016, was admitted after being brought to the emergency room via ambulance with the above chief complaint. The patient states that since her appendectomy she just has not felt right. She says she has been getting slowly weaker and she does not have the energy she used to. She has not been having any pain. She says she has been eating and drinking well and having normal bowel movements. No dysuria or hematuria. She has had no fever. Last night, she went to bed and took some Ambien. Her is not sure if she took one or [id number] tablets, but then he went down to read. A few hours later, he heard a loud thump upstairs and when he went upstairs she had fallen coming back from the bathroom next to the bed. There was no loss of consciousness, but she was quite weak and confused. He thought he would better get her to the emergency room. He got her dressed and got her downstairs, but he said he was not able to get her any further because of increased weakness and the increased confusion. He contacted the ambulance, who brought her in for evaluation. She has had no cough or sore throat. Denies any ear pain. Denies any other joint pain, swelling, or tenderness. She has had no dysuria or hematuria. While in the emergency room, she was found to have a leukocytosis that was quite significant. She had an abdominal CT showing a small abscess with some evidence of peritonitis, and for that reason, was admitted for more aggressive therapy. MEDICATIONS: 1. Ambien 5 mg at bedtime p.r.n. 2. She just finished off her erythromycin 250 mg q.i.d. 3. She uses levothyroxine 50 mcg daily except for 100 mcg on Wednesday and Wednesday. 4. Eskalith 450 two tablets daily and she takes it about noon. 5. Mirtazapine 15 mg at bedtime. 6. Omeprazole 20 mg daily. 7. Calcium with vitamin D one capsule daily. 8. Hydrochlorothiazide 25 mg daily p.r.n. for swelling. 9. She is also on aspirin 81 mg daily. 10.Docusate sodium 100 mg daily. 11.She uses some Diprolene ointment p.r.n. for skin rash. ALLERGIES: None known. SOCIAL HISTORY: She quit smoking back in the 1980s. Prior to that, she was smoking about 16 years. Alcohol, she has "couple of glasses of wine a day when she drinks." PAST MEDICAL HISTORY: Pertinent that she is 3, para 2. She has had two sections and apparently an ectopic . She has had a number of colonoscopies. She had an appendectomy done earlier last month. She has a history of bipolar disorder and some depression. FAMILY HISTORY: Mother is still living in her 90s. She has dementia. Father apparently in his early 90s. She has five siblings, apparently all in good health. REVIEW OF SYSTEMS: Otherwise negative. PHYSICAL EXAMINATION: VITAL SIGNS: At this time showed temp initially be 99.1, blood pressure 121/68, pulse is 95 and regular, respirations were 18 and unlabored, O2 saturation was 98%. GENERAL: Well-developed slightly obese female, whose affect appears somewhat flat, but in otherwise no acute distress. HEENT: Head was normocephalic and atraumatic. Pupils were round and reacted well to light and accommodation. Extraocular movements were intact. Sclerae and conjunctivae were clear. TMs were clear. Nasal passages were open without discharge. Pharynx and palate were negative. NECK: Supple. Thyroid was not enlarged. Carotid pulses strong and equal without bruits. There was no jugular venous distention while sitting upright. CHEST: Completely clear. No wheezes, rales, rhonchi, or retractions. CARDIOVASCULAR: Revealed a normal S1 and S2 with a regular rhythm. There was no murmur, rub, or gallop. ABDOMEN: Soft with a well-healed Pfannenstiel incisional scar and a healing umbilical incisional scar. There was some minimal tenderness throughout without specific rebound or rigidity. Bowel sounds were present, although hypoactive. No bruits were noted. EXTREMITIES: Without clubbing, no edema. No ulcerations or areas of breakdown. Tapping on her heels caused no increase in abdominal pain. Other than the flat affect, neurologically she was completely intact. LABORATORY DATA: CBC today revealed a hemoglobin of 11.3, hematocrit of 33.5, white count of 20,300, platelets were elevated at 981,000. She had 80 segs, 4 bands, 11 lymphocytes, 4 monos, and 1 metamyelocyte. Her sedimentation rate was elevated at 85. She had a sodium of 135, potassium at 3.8, creatinine of 1.1, BUN of 17. Glucose was 121. Alkaline phosphatase was elevated at 162 with remainder of her liver functions were normal. Total protein was 8.2. Urinalysis was unremarkable. CT scan revealed the above-mentioned findings. When she was hospitalized with the appendectomy, a culture was obtained of her abdominal fluid during her operation. She did in fact have a small amount of Bacteroides fragilis and enterococcus growing. There was also light growth of beta-hemolytic strep non A and non B. Sensitivities are back. The enterococcus was sensitive to ampicillin and only resistant to tetracycline. The non A and non B beta-hemolytic strep was sensitive to penicillin. IMPRESSION: 1. Post appendectomy peritonitis, possibly early abscess formation. 2. Bipolar disorder. PLAN: The patient will be admitted. Cultures have been obtained and we will start Unasyn 3 g IV q.6 hours. Continue her home medicines. We will check a lithium level and then follow from there. /[id number] WM/MODL
--- NOTE | 2016-09-03 19:32 | PCM.PN ---
- General Info Date of Service: 09/03/16 - Review of Systems Systems Review Comment:: Patient confused last night requiring evaluation in ER. Still with high WBC's and CT of abd interpreted as showing possible 3cm abscess which could explain high WBC's and Platelet count. I have had her scan reviewed by Dr. Little Interventional Radiologist at [facility] in [place] and he thinks there may be a possibility of draining abscess percutaneously. Plan: Continue IV antibiotics tonight and patient will go to [facility] in [place] tomorrow late morning where she will have a repeat scan with good oral contrast. Dr. Little will then determine if drainage indicated and possible. Patient will be discharged from [place] in the morning to go to this appointment and further care will be determined pending results of this evaluation. She is scheduled to register at [facility] at 12:30pm tomorrow. I discussed this at length with the patient and her and they are in agreement with this plan. Will make patient NPO after midnight except for meds. Upon review with staff in [place] today they stated that no more labs necessary to be drawn at this time. - Patient Data Vitals - most recent: Last Vital Signs Temp 98.7 F 09/03/16 14:20 Pulse 84 09/03/16 17:00 Resp 20 09/03/16 17:00 BP 129/70 09/03/16 17:00 Pulse Ox 97 09/03/16 17:00 Weight - most recent: 183 lb 9.6 oz Med Orders - Current: Current Medications Aspirin (Aspirin) 81 mg PO BEDTIME [facility] Cholecalciferol (Vitamin D3) 1,000 units PO DAILY [facility] Last Admin: 09/03/16 13:53 Dose: 1,000 units Docusate Sodium (Colace) 100 mg PO BEDTIME [facility] Enoxaparin Sodium (Lovenox) 30 mg SUBCUT DAILY [facility] Sodium Chloride (Normal Saline) 1,000 mls @ 500 mls/hr IV ASDIRECTED [facility] Last Admin: 09/03/16 17:05 Dose: 100 mls/hr Ampicillin Sodium/Sulbactam (Sodium 3 gm/ Sodium Chloride) 100 mls @ 100 mls/ hr IV Q6H MIAN Last Admin: 09/03/16 17:03 Dose: 100 mls/hr Sodium Chloride (Normal Saline) 250 mls @ 100 mls/hr IV ASDIRECTED [facility] Last Admin: 09/03/16 10:50 Dose: 100 mls/hr Levothyroxine Sodium (Synthroid) 100 mcg PO SuWe@0600 [facility] Levothyroxine Sodium (Synthroid) 50 mcg PO MoTuThFrSa@0600 [facility] Last Admin: 09/03/16 13:52 Dose: 50 mcg Mirtazapine (Remeron) 15 mg PO BEDTIME [facility] [place] Carbonate Er (450mg) 900 mg PO DAILY [facility] Last Admin: 09/03/16 13:52 Dose: 900 mg Omeprazole (Omeprazole) 20 mg PO Q2D [facility] Sodium Chloride (Saline Flush) 10 ml FLUSH ASDIRECTED PRN PRN Reason: Keep Vein Open Last Admin: 09/03/16 06:10 Dose: 10 ml Discontinued Medications Iopamidol (Isovue-370 (76%)) 100 ml IV . DIRECTED ONE Stop: 09/03/16 06:17 Last Admin: 09/03/16 06:42 Dose: 100 ml - Problem List Review Problem List Initiated/Reviewed/Updated: Yes - Assessment Assessment:: Intra-abdominal abscess 2.5 weeks post appendectomy for ruptured appendix - Plan Plan:: To [facility] tomorrow for possible IR drainage of abscess
[2016-09-03] MEDS ORDERED: Ketorolac 30 MG/ML SDV IVPUSH PRN (20:55)
[2016-09-03] MEDS ORDERED: Docusate Sodium 100 MG Cap PO SCH (21:00)
[2016-09-03] MEDS ORDERED: Mirtazapine 15 MG Tab PO SCH (21:00)
[2016-09-03] MEDS ORDERED: Aspirin 81 MG Tab.Chew PO SCH (21:00)
[2016-09-03] MEDS ORDERED: Levofloxacin/Dextrose 5%-Water 100 ML IV ONE (21:31)
[2016-09-03] MEDS: diphenhydrAMINE 50 MG Cap PO PRN (21:36)
[2016-09-03] MEDS ORDERED: Levofloxacin/Dextrose 5%-Water 500 MG in Premix Bag 1 BAG IV ONE (23:00)
[2016-09-04] MEDS: diphenhydrAMINE 50 MG Cap PO PRN ×2 (03:45→10:32)
[2016-09-04] MEDS: Levothyroxine 50 MCG Tab PO SCH (05:44)
[2016-09-04] MEDS ORDERED: Omeprazole 20 MG Cap.CR PO SCH (06:00)
[2016-09-04] MEDS: Cholecalciferol (Vitamin D3) 1,000 Unit Tab PO SCH (08:28)
[2016-09-04] MEDS: LITHIUM CARBONATE 450 MG PO SCH (08:29)
[2016-09-04] MEDS ORDERED: Enoxaparin 30 MG/0.3 ML Syringe SUBCUT SCH (09:00)
--- NOTE | 2016-09-04 10:00 | PCM.PN ---
- General Info Date of Service: 09/04/16 Functional Status: Reports: pain controlled - Review of Systems Skin: Reports: rash (mild macular on upper chest) Systems Review Comment:: Developed itching on chest last night and presumed to have developed allergy to PCN. Itching still present today. - Patient Data Vitals - most recent: Last Vital Signs Temp 98.8 F 09/04/16 03:45 Pulse 86 09/04/16 01:00 Resp 20 09/04/16 01:00 BP 134/69 09/04/16 01:00 Pulse Ox 98 09/04/16 01:00 Weight - most recent: 178 lb 12.8 oz I&O - last 24 hours: Intake & Output 09/03/16 09/04/16 09/04/16 22:59 06:59 14:59 Intake Total 280 Balance 280 Lab Results last 24 hrs: Laboratory Results - last 24 hr 09/04/16 09/04/16 Range/Units 02:12 02:12 WBC 19.1 H (4.5-12.0) X10-3/uL RBC 3.58 (3.23-5.20) x10(6)uL Hgb 10.8 L (11.5-15.5) g/dL Hct 32.7 (30.0-51.3) % MCV 91.4 (80-96) fL MCH 30.3 (27.7-33.6) pg MCHC 33.1 (32.2-35.4) g/dL RDW 12.4 (11.5-15.5) % Plt Count 883 H (125-369) X10(3)uL MPV 7.6 (7.4-10.4) fL Add Manual Diff Yes Neutrophils % (Manual) 75 (46-82) % Band Neutrophils % 3 (0-6) % Lymphocytes % (Manual) 13 (13-37) % Monocytes % (Manual) 3 L (4-12) % Eosinophils % (Manual) 5 (0-5) % Metamyelocytes % 1 H (0-0) % Sodium 141 (135-145) mmol/L Potassium 4.0 (3.5-5.3) mmol/L Chloride 107 D (100-110) mmol/L Carbon Dioxide 26 (23-29) mmol/L BUN 12 (8-23) mg/dL Creatinine 1.0 (0.6-1.3) mg/dL Est Cr Clr Drug Dosing 53.20 mL/min Estimated GFR (MDRD) 56 L (>60) BUN/Creatinine Ratio 12.0 (9-20) Glucose 105 (80-116) mg/dL Calcium 9.6 (8.6-10.2) mg/dL Anoop Results last 24 hrs: Microbiology 09/03/16 08:15 Aerobic Blood Culture - Preliminary Blood - Venous - Lab Draw NO GROWTH AFTER 1 DAY Anaerobic Blood Culture - Preliminary NO GROWTH AFTER 1 DAY 09/03/16 08:10 Aerobic Blood Culture - Preliminary Blood - Venous NO GROWTH AFTER 1 DAY Anaerobic Blood Culture - Preliminary NO GROWTH AFTER 1 DAY Med Orders - Current: Current Medications Cholecalciferol (Vitamin D3) 1,000 units PO DAILY [facility] Last Admin: 09/04/16 08:28 Dose: 1,000 units Diphenhydramine HCl (Benadryl) 50 mg PO Q6H PRN PRN Reason: Rash Last Admin: 09/04/16 03:45 Dose: 50 mg Docusate Sodium (Colace) 100 mg PO BEDTIME [facility] Last Admin: 09/03/16 21:26 Dose: 100 mg Sodium Chloride (Normal Saline) 1,000 mls @ 500 mls/hr IV ASDIRECTED [facility] Last Admin: 09/03/16 17:05 Dose: 100 mls/hr Sodium Chloride (Normal Saline) 250 mls @ 100 mls/hr IV ASDIRECTED [facility] Last Admin: 09/03/16 10:50 Dose: 100 mls/hr Ketorolac Tromethamine (Toradol) 30 mg IVPUSH Q6H PRN PRN Reason: Pain Stop: 09/08/16 21:10 Levothyroxine Sodium (Synthroid) 100 mcg PO SuWe@0600 [facility] Levothyroxine Sodium (Synthroid) 50 mcg PO MoTuThFrSa@0600 [facility] Last Admin: 09/04/16 05:44 Dose: 50 mcg Mirtazapine (Remeron) 15 mg PO BEDTIME [facility] Last Admin: 09/03/16 21:26 Dose: 15 mg [place] Carbonate Er (450mg) 900 mg PO DAILY [facility] Last Admin: 09/04/16 08:29 Dose: 900 mg Omeprazole (Omeprazole) 20 mg PO Q2D [facility] Last Admin: 09/04/16 05:43 Dose: 20 mg Sodium Chloride (Saline Flush) 10 ml FLUSH ASDIRECTED PRN PRN Reason: Keep Vein Open Last Admin: 09/03/16 22:30 Dose: 10 ml Discontinued Medications Aspirin (Aspirin) 81 mg PO BEDTIME [facility] Enoxaparin Sodium (Lovenox) 30 mg SUBCUT DAILY [facility] Ampicillin Sodium/Sulbactam (Sodium 3 gm/ Sodium Chloride) 100 mls @ 100 mls/ hr IV Q6H [facility] Last Admin: 09/03/16 17:03 Dose: 100 mls/hr Levofloxacin/Dextrose 500 mg/ (Premix) 100 mls @ 100 mls/hr IV ONETIME ONE Stop: 09/03/16 23:59 Last Admin: 09/03/16 22:29 Dose: 100 mls/hr Levofloxacin/Dextrose (Levaquin In D5w 500 Mg/100 Ml) Confirm Administered Dose 100 mls @ as directed IV .STK-MED ONE Stop: 09/03/16 21:32 Last Admin: 09/03/16 22:28 Dose: Not Given Iopamidol (Isovue-370 (76%)) 100 ml IV . DIRECTED ONE Stop: 09/03/16 06:17 Last Admin: 09/03/16 06:42 Dose: 100 ml - Exam General: alert, oriented Lungs: Normal respiratory effort Abdomen: no tenderness - Problem List Review Problem List Initiated/Reviewed/Updated: Yes - My Orders Last 24 Hours: My Active Orders 09/04/16 09:55 Ready for Discharge [RC] PER UNIT ROUTINE 09/04/16 Breakfast NPO After Midnight [Nothing per Oral After Midnight Diet] [DIET] - Assessment Assessment:: Intra-abdominal abscess 2.5 weeks post appendectomy for ruptured appendix Recently developed allergy to Penicillin - Plan Plan:: Discharge today and will go to [facility] for possible IR drainage of abscess
[2016-09-04 10:17] VITALS: BP 128/73
[2016-09-06] MEDS ORDERED: Levothyroxine 100 MCG Tab PO SCH (06:00)
== END 2016-09-04 11:15 | DRG 863 ==
LOC: FB.ED 03:47 → FB.MS 07:35
PROVIDERS: ADMIT Family Medicine; ATTEND Family Medicine
DX: K68.11 Postprocedural retroperitoneal abscess (principal); I10 Essential (primary) hypertension; E03.9 Hypothyroidism, unspecified; K21.9 Gastro-esophageal reflux disease without esophagitis; F31.9 Bipolar disorder, unspecified; Z87.891 Personal history of nicotine dependence; W18.30XA Fall on same level, unspecified, initial encounter; Y92.003 Bedroom of unspecified non-institutional (private) residence as the place of occurrence of the external cause; Z79.82 Long term (current) use of aspirin; Z88.0 Allergy status to penicillin; L27.0 Generalized skin eruption due to drugs and medicaments taken internally; T36.0X5A Adverse effect of penicillins, initial encounter; Y92.239 Unspecified place in hospital as the place of occurrence of the external cause
CPT/HCPCS: 36415; 74177; 80048; 80053; 80178; 81001; 85025; 85651; 87040; 87086; 87088; 87186; 96360; 96361; 99284; A9270-GY; J0295; J1956; J7030; J7040; J7050; Q9967